=== PATIENT | male | born 1975 | race African-American/Black ===

== ENCOUNTER 2016-11-26 13:40 | Emergency (ER) | payer SELFPAY ==
[2016-11-26 14:04] VITALS: BP 125/84; TEMP 98.4; O2SAT 93
[2016-11-26] MEDS ORDERED: LIDOCAINE VIS-MYLANTA 30 ML UD PO ONE (14:31)
--- NOTE | 2016-11-26 14:34 | ED.PDOC ---
History of Present Illness - General Chief Complaint: Abdominal Pain Stated Complaint: Abdominal discomfort Time Seen by Provider: 11/26/16 14:09 Information Source: patient Exam Limitations: no limitations - History of Present Illness Initial Comments: Patient reports sudden onset of sharp epigastric abdominal pain that began while he was eating a hamburger. Patient reports that the pain was 7 out of 10 in intensity. He states that it lasted approximately 2 minutes before subsiding on its own. Patient denies any pain at the current moment.patient denies any associated symptoms such as nausea or vomiting fevers or chills. Abdominal Pain Onset Location: epigastric Pain Radiation: no radiation Quality: moderate Timing/Duration: resolved prior to arrival Improving Factors: nothing Worsening Factors: eating Associated Symptoms: denies symptoms Review of Systems - Review of Systems Constitutional: Denies: chills, fever Respiratory: Denies: cough, short of breath Cardiology: Denies: chest pain, palpitations Gastrointestinal/Abdominal: States: see HPI, abdominal pain. 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 Family Medical History - Family History Mother Family History: No Known Living Status: Still Living Physical Exam - Physical Exam General Appearance: Alert, Anxious, No apparent distress Eyes, Ears, Nose, Throat Exam: normal ENT inspection Neck: normal inspection Respiratory: normal breath sounds, no respiratory distress Cardiovascular/Chest: regular rate, rhythm, no murmur Gastrointestinal/Abdominal: non tender, soft, no organomegaly Back Exam: normal inspection Extremity: normal range of motion, normal inspection Neurologic: alert, normal mood/affect, oriented x 3 Skin Exam: normal color, warm/dry Departure - Departure Clinical Impression: Indigestion Time of Disposition: 14:36 Disposition: Discharge to Home or Self Care Condition: Good Departure Forms: ED Discharge - Pt. Copy, Patient Portal Self Enrollment Instructions: DI for Abdominal Pain-Adult Diet: resume usual diet Home Medications: Ambulatory Orders NK [NK] 11/26/16 Additional Instructions: Patient was instructed to return if symptoms return and fail to resolve.
== END 2016-11-26 14:44 | disposition home or self-care (01) ==
LOC: ER 13:40
DX: K30 Functional dyspepsia (principal)

== ENCOUNTER 2016-11-29 11:04 | Emergency (ER) | payer SELFPAY ==
[2016-11-29 11:28] VITALS: TEMP 97
[2016-11-29] MEDS ORDERED: LIDOCAINE VIS-MYLANTA 30 ML UD PO ONE (11:59)
--- NOTE | 2016-11-29 12:03 | ED.PDOC ---
History of Present Illness - General Chief Complaint: Upper Extremity Injury Stated Complaint: arm pain,abdominal pain Time Seen by Provider: 11/29/16 11:53 Source: patient Exam Limitations: no limitations - History of Present Illness Initial Comments: Patient presents with a history of intermittent abdominal pain. He said he had it "pretty bad" last night. It is worse just after eating. It has since resolved. He has had multiple previous episodes and was told he may have an "ulcer". He has had no N/V/D/melena. He says that he smokes and drinks alot of sodas. He also said he was doing bicep curls in the gym three days ago and now his biceps are sore. He thinks he may have overdone his workout. No other complaints. Timing/Duration: unsure, changing over time, intermittent Severity: mild Improving Factors: nothing Worsening Factors: eating Associated Symptoms: denies symptoms Allergies/Adverse Reactions: Allergies NO KNOWN ALLERGY Allergy (Verified 11/26/16 13:58) Home Medications: Ambulatory Orders Omeprazole 20 mg PO BID #60 cap 11/29/16 Review of Systems - Review of Systems Constitutional: States: no symptoms reported EENTM: States: no symptoms reported Respiratory: States: no symptoms reported Cardiology: States: no symptoms reported Gastrointestinal/Abdominal: States: see HPI Genitourinary: States: no symptoms reported Musculoskeletal: States: no symptoms reported Skin: States: no symptoms reported Neurological: States: no symptoms reported Endocrine: States: no symptoms reported Hematologic/Lymphatic: States: no symptoms reported Past Medical History (General) - Patient Medical History Hx Stroke: No Hx Congestive Heart Failure: No Hx Hypertension: No Hx Diabetes: No Hx MRSA: No Surgical History: no surgical history - Vaccination History Hx Influenza Vaccination: No Hx Pneumococcal Vaccination: No - Social History Hx Tobacco Use: Yes Hx Alcohol Use: No 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 11/29/16 12:29 Departure - Departure Clinical Impression: Gastritis Disposition: Discharge to Home or Self Care Condition: Good Departure Forms: ED Discharge - Pt. Copy, Patient Portal Self Enrollment Diet: other - Stop drinking sodas. Increase your water intake. Prescriptions: Omeprazole 20 mg PO BID #60 cap Home Medications: Ambulatory Orders Omeprazole 20 mg PO BID #60 cap 11/29/16 Additional Instructions: Take Mylanta as directed on the bottle. Take prescription omeprazole as directed. See a primary care physician next week about possibly looking for an ulcer. Rest your biceps for two weeks.
[2016-11-29 12:45] VITALS: BP 137/84; O2SAT 100
== END 2016-11-29 12:46 | disposition home or self-care (01) ==
LOC: ER 11:04
DX: K29.70 Gastritis, unspecified, without bleeding (principal); F17.200 Nicotine dependence, unspecified, uncomplicated

== ENCOUNTER 2017-01-15 14:37 | Emergency (ER) | payer SELFPAY ==
[2017-01-15 14:48] VITALS: TEMP 98.2
[2017-01-15] MEDS ORDERED: LIDOCAINE VIS-MYLANTA 30 ML UD PO ONE (14:58)
--- NOTE | 2017-01-15 15:23 | RAD ---
EXAM DESCRIPTION: Abdomen Series CLINICAL HISTORY: rigth abdomen and flank pain 1 hour COMPARISON: November 29, 2015 FINDINGS: AP supine and upright views of the abdomen show a nonspecific, nonobstructive bowel gas pattern with no evidence for free intraperitoneal air. No air-filled dilated loops of small bowel are seen. No significant air-fluid levels are identified. No obvious organomegaly is seen. No abnormal calcifications are seen in the expected location of the renal collecting systems. Single view of the chest shows cardiac silhouette and pulmonary vasculature to be within normal limits. Lungs are normally aerated and clear IMPRESSION: Nonspecific abdominal series Electronically signed by: Marko Srinivasan MD 01/15/2017 3:22 PM CDT
--- NOTE | 2017-01-15 15:51 | ED.PDOC ---
History of Present Illness - General Chief Complaint: Abdominal Pain Stated Complaint: epigastric pain Time Seen by Provider: 01/15/17 14:38 Source: patient Exam Limitations: no limitations - History of Present Illness Initial Comments: the patient is a 41-year-old -L[place] male presenting to the emergency room secondary to right-sided epigastric and abdominal pain starting approximately 20 minutes prior to arrival. It is burning in nature. He had a previous episode about a month and a half ago and took omeprazole for a month without any recurrence. He has been out of that medication for 2 weeks. No palpitations. No vomiting. No nausea. No syncope or near syncope. No significant previous medical problems except that he has had substance abuse issues in the past. The patient does not appear to be any distress at this time. He reports that the GI cocktail was given here did help significantly with the pain. No urinary symptoms. No radiation of pain to the groin. No bruising is noted. I do not see any evidence of a hernia. Timing/Duration: 1/2 hour Severity: moderate Improving Factors: nothing Worsening Factors: nothing Associated Symptoms: denies symptoms Allergies/Adverse Reactions: Allergies NO KNOWN ALLERGY Allergy (Verified 11/26/16 13:58) Home Medications: Ambulatory Orders Omeprazole 20 mg PO BID #60 cap 11/29/16 Famotidine 20 mg PO DAILY #100 tab 01/15/17 Review of Systems - Review of Systems Constitutional: States: no symptoms reported EENTM: States: no symptoms reported Respiratory: States: no symptoms reported Cardiology: States: no symptoms reported Gastrointestinal/Abdominal: States: see HPI Genitourinary: States: no symptoms reported Musculoskeletal: States: see HPI Skin: States: no symptoms reported Neurological: States: no symptoms reported Endocrine: States: no symptoms reported All other Systems: No Change from Baseline Past Medical History (General) - Patient Medical History Hx Stroke: No Hx Congestive Heart Failure: No Hx Hypertension: No Hx Diabetes: No Hx MRSA: No Surgical History: no surgical history - Vaccination History Hx Influenza Vaccination: No Hx Pneumococcal Vaccination: No - Social History Hx Tobacco Use: Yes Hx Alcohol Use: No 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 Family Medical History - Family History Mother Family History: No Known Living Status: Still Living Physical Exam - Physical Exam General Appearance: Alert, Comfortable, No apparent distress Eye Exam: bilateral normal Ears, Nose, Throat: normal ENT inspection, normal pharynx Neck: non-tender, full range of motion, supple Respiratory: chest non-tender, lungs clear, normal breath sounds, no respiratory distress, no accessory muscle use Cardiovascular/Chest: normal peripheral pulses, regular rate, rhythm, no edema Peripheral Pulses: radial,right: 2+, radial,left: 2+, dorsalis pedis,right: 2+, dorsalis pedis,left: 2+ Gastrointestinal/Abdominal: soft, other - mild epigastric to right upper quadrant discomfort palpation. No rebound or peritoneal signs. No definite palpable mass. Rectal Exam: deferred Back Exam: normal inspection, no vertebral tenderness, other - questionable very mild right costovertebral angle tenderness Extremity: normal range of motion, non-tender, normal inspection, no pedal edema Neurologic: dragline oiler II-XII nml as tested, alert, normal mood/affect - the patient does have poor eye contact., oriented x 3 Skin Exam: normal color Comments: Vital Signs - 24 hr 01/15/17 14:45 Temperature 98.2 F Pulse Rate [ 94 H Right Brachial] Respiratory 16 Rate Blood Pressure 118/77 [Right Arm] O2 Sat by Pulse 97 Oximetry Progress - Progress Progress: 01/15/17 15:53 the patient is a 41-year-old -Lebanese male presenting to the emergency room secondary to sudden onset of abdominal pain this morning. Looking back over his history he does have a history of significant gastritis and is currently out of any medications for that. I'm going to place the patient on famotidine twice a day for now. He needs to keep well-hydrated. Needs to avoid illicit substance abuse. He needs to avoid large spicy meals. He needs to avoid overheating. He needs to follow-up with his primary care doctor in a few days to make sure that he is doing well. He did have a good response to a GI cocktail here today. Maalox can be used additionally as needed for symptom relief. ER warnings were given for any worsening. - Results/Orders Results/Orders: Laboratory Tests 01/15/17 15:15 Urine Color Yellow Urine Appearance Clear Urine pH 7.5 Ur Specific [place] 1.020 Urine Protein Negative Urine Glucose (UA) Negative Urine Ketones Negative Urine Blood Negative Urine Nitrite Negative Urine Bilirubin Negative Urine Urobilinogen 4.0 H Ur Leukocyte Esterase Negative Urine RBC 0 Urine WBC 0 Ur Epithelial Cells 0 Urine Bacteria 0 acute abdominal series shows no acute pathology. Departure - Departure Clinical Impression: Gastritis Disposition: Discharge to Home or Self Care Condition: Fair Departure Forms: ED Discharge - Pt. Copy, Patient Portal Self Enrollment Instructions: DI for Abdominal Pain-Adult Diet: bland diet Activity: increase activity as tolerated Prescriptions: Famotidine 20 mg PO DAILY #100 tab Home Medications: Ambulatory Orders Omeprazole 20 mg PO BID #60 cap 11/29/16 Famotidine 20 mg PO DAILY #100 tab 01/15/17 Additional Instructions: the patient is a 41-year-old -L[place]anese male presenting to the emergency room secondary to sudden onset of abdominal pain this morning. Looking back over his history he does have a history of significant gastritis and is currently out of any medications for that. I'm going to place the patient on famotidine twice a day for now. He needs to keep well-hydrated. Needs to avoid illicit substance abuse. He needs to avoid large spicy meals. He needs to avoid overheating. He needs to follow-up with his primary care doctor in a few days to make sure that he is doing well. He did have a good response to a GI cocktail here today. Maalox can be used additionally as needed for symptom relief. ER warnings were given for any worsening.
[2017-01-15 16:06] VITALS: BP 138/90; O2SAT 99
== END 2017-01-15 16:05 | disposition home or self-care (01) ==
LOC: ER 14:37
DX: K29.70 Gastritis, unspecified, without bleeding (principal); Z87.898 Personal history of other specified conditions

== ENCOUNTER 2017-01-21 12:52 | Emergency (ER) | payer SELFPAY ==
[2017-01-21] MEDS ORDERED: FAMOTIDINE 20 MG TAB PO ONE (13:43)
[2017-01-21] MEDS ORDERED: SUCRALFATE 1 GM/10 ML 1 GM UD PO ONE (13:43)
--- NOTE | 2017-01-21 13:46 | ED.PDOC ---
History of Present Illness - General Time Seen by Provider: 01/21/17 13:19 Source: patient Exam Limitations: no limitations - History of Present Illness Initial Comments: the patient is a 41-year-old -[place] male presenting to the emergency room secondary to complaints of mild abdominal discomfort. He is having some epigastric discomfort. Intermittent mild nausea. No vomiting. No diarrhea. No melena. No fevers. His appetite has been poor than normal. No chest pain. A syncope or near syncope. The patient was seen approximately one week ago by me with essentially the same symptoms. X-rays and urinalysis were done and were reassuring. The patient has a long-standing history of gastritis and reflux and has been off of his medications. He was written for famotidine last week but did not get them filled. His symptoms have persisted so he returned to the emergency room.no fevers. No new pain. Timing/Duration: 1 week Severity: mild Improving Factors: nothing Worsening Factors: nothing Associated Symptoms: denies symptoms Allergies/Adverse Reactions: Allergies NO KNOWN ALLERGY Allergy (Verified 11/26/16 13:58) Home Medications: Ambulatory Orders Omeprazole 20 mg PO BID #60 cap 11/29/16 Famotidine 20 mg PO DAILY #100 tab 01/15/17 Famotidine 20 mg PO BID #60 tab 01/21/17 Sucralfate Tab [Carafate Tab] 1 gm PO QID #60 tab 01/21/17 Review of Systems - Review of Systems Constitutional: States: no symptoms reported EENTM: States: no symptoms reported Respiratory: States: no symptoms reported Cardiology: States: no symptoms reported Gastrointestinal/Abdominal: States: abdominal pain, nausea - mild Genitourinary: States: no symptoms reported Musculoskeletal: States: no symptoms reported Skin: States: no symptoms reported Neurological: States: no symptoms reported Endocrine: States: no symptoms reported All other Systems: No Change from Baseline Past Medical History (General) - Patient Medical History Hx Stroke: No Hx Congestive Heart Failure: No Hx Hypertension: No Hx Diabetes: No Hx MRSA: No - Vaccination History Hx Influenza Vaccination: No Hx Pneumococcal Vaccination: No - Social History Hx Tobacco Use: Yes Hx Alcohol Use: No 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 Family Medical History - Family History Mother Family History: No Known Living Status: Still Living Physical Exam - Physical Exam General Appearance: Alert, Comfortable, No apparent distress Eye Exam: bilateral normal Ears, Nose, Throat: hearing grossly normal, normal ENT inspection, normal pharynx Neck: non-tender, full range of motion, supple, normal inspection Respiratory: chest non-tender, lungs clear, normal breath sounds, no respiratory distress, no accessory muscle use Cardiovascular/Chest: normal peripheral pulses, regular rate, rhythm, no edema Peripheral Pulses: radial,right: 2+, radial,left: 2+, dorsalis pedis,right: 2+, dorsalis pedis,left: 2+ Gastrointestinal/Abdominal: soft, other - mild epigastric discomfort palpation. No rebound or peritoneal signs. No definite palpable mass. Rectal Exam: deferred Back Exam: normal inspection, no CVA tenderness, no vertebral tenderness Extremity: normal range of motion, non-tender, normal inspection, no pedal edema , normal capillary refill Neurologic: finisher machine II-XII nml as tested, alert, normal mood/affect, oriented x 3 Skin Exam: normal color Progress - Progress Progress: 01/21/17 13:47 the patient is a 41-year-old male presenting to the emergency room secondary to persistent epigastric discomfort. The patient has a history of gastritis and reflux and has been off his medications for some time. The patient will be rewritten for his famotidine. We will also add Carafate for 2 weeks. He needs to grape picker some Maalox or Mylanta to use as needed to control symptoms. He needs to avoid hot or spicy foods. No smoking. He needs to keep well- hydrated. If the above measures are failing to control his symptoms then he is to return for additional workup. He needs to follow up with his primary care doctor towards the end of this week. Departure - Departure Clinical Impression: Gastritis Disposition: Discharge to Home or Self Care Condition: Fair Instructions: DI for Gastritis Diet: bland diet Activity: increase activity as tolerated Prescriptions: Famotidine 20 mg PO BID #60 tab Sucralfate Tab [Carafate Tab] 1 gm PO QID #60 tab Home Medications: Ambulatory Orders Omeprazole 20 mg PO BID #60 cap 11/29/16 Famotidine 20 mg PO DAILY #100 tab 01/15/17 Famotidine 20 mg PO BID #60 tab 01/21/17 Sucralfate Tab [Carafate Tab] 1 gm PO QID #60 tab 01/21/17 Additional Instructions: the patient is a 41-year-old male presenting to the emergency room secondary to persistent epigastric discomfort. The patient has a history of gastritis and reflux and has been off his medications for some time. The patient will be rewritten for his famotidine. We will also add Carafate for 2 weeks. He needs to grape picker some Maalox or Mylanta to use as needed to control symptoms. He needs to avoid hot or spicy foods. No smoking. He needs to keep well- hydrated. If the above measures are failing to control his symptoms then he is to return for additional workup. He needs to follow up with his primary care doctor towards the end of this week.
[2017-01-21 16:54] VITALS: BP 148/79; TEMP 98.4; O2SAT 98
== END 2017-01-21 14:15 | disposition home or self-care (01) ==
LOC: ER 12:52
DX: K29.70 Gastritis, unspecified, without bleeding (principal); Z87.891 Personal history of nicotine dependence

== ENCOUNTER 2017-02-11 14:42 | Emergency (ER) | payer SELFPAY ==
[2017-02-11 14:59] VITALS: BP 129/87; TEMP 98.4; O2SAT 95
--- NOTE | 2017-02-11 15:31 | ED.PDOC ---
History of Present Illness - General Chief Complaint: Abdominal Pain Stated Complaint: abdominal pain Time Seen by Provider: 02/11/17 15:29 Information Source: patient Exam Limitations: no limitations - History of Present Illness Initial Comments: Rakesh Lemon 42 y/o male stated he had onset of cramping epigastric pain 2 hours ago not related to any food intake.Had normal bm yesterday,no nausea /vomiting.Denies chronic medical problem. Abdominal Pain Onset Location: epigastric Pain Radiation: epigastric Quality: cramping Timing/Duration: 1-3 hours Improving Factors: nothing, eating Associated Symptoms: denies symptoms Review of Systems - Review of Systems Constitutional: States: no symptoms reported EENTM: States: no symptoms reported Respiratory: States: no symptoms reported Cardiology: States: no symptoms reported Gastrointestinal/Abdominal: States: see HPI Genitourinary: States: no symptoms reported Musculoskeletal: States: no symptoms reported Past Medical History (General) - Patient Medical History Hx Stroke: No Hx Congestive Heart Failure: No Hx Hypertension: No Hx Diabetes: No Hx MRSA: No Surgical History: no surgical history - Vaccination History Hx Influenza Vaccination: No Hx Pneumococcal Vaccination: No - Social History Hx Tobacco Use: Yes Cigarettes Packs Per Day: 1 Hx Alcohol Use: Yes - 02-10-17 Hx Substance Use: Yes - last used meth 1 day ago Hx Substance Use Treatment: No - Activities of Daily Living Hospice Agency (if applicable):: None - Female History Patient is a Female of Child Bearing Age (10 -59 yrs old): No Patient : No Family Medical History - Family History Mother Family History: No Known Living Status: Still Living Physical Exam - Physical Exam General Appearance: Alert, Comfortable, No apparent distress Eyes, Ears, Nose, Throat Exam: PERRL/EOMI, normal ENT inspection, TMs normal Neck: non-tender, full range of motion, supple Respiratory: chest non-tender, lungs clear, normal breath sounds Cardiovascular/Chest: normal peripheral pulses, regular rate, rhythm, no edema, no murmur Peripheral Pulses: No deficit Gastrointestinal/Abdominal: normal bowel sounds, soft, tenderness - epigastrium no peritoneal signs Back Exam: normal inspection, no CVA tenderness Extremity: normal range of motion, non-tender Neurologic: no motor/sensory deficits, alert, oriented x 3 Skin Exam: normal color, warm/dry Lymphatic: no adenopathy Progress - Progress Progress: 02/11/17 17:46 Vital Signs - 8 hr 02/11/17 14:47 Temperature 98.4 F Pulse Rate [ 97 H pulse ox] Respiratory 16 Rate Blood Pressure 129/87 [Left Arm] O2 Sat by Pulse 95 Oximetry Laboratory Tests 02/11/17 02/11/17 15:48 15:48 WBC 6.7 RBC 5.33 Hgb 15.2 Hct 45.6 MCV 85.6 MCH 28.5 MCHC 33.3 RDW 13.7 Plt Count 283 MPV 7.4 Absolute Neuts (auto) 3.80 Absolute Lymphs (auto) 2.20 Absolute Monos (auto) 0.50 Absolute Eos (auto) 0.10 Absolute Basos (auto) 0.00 Neutrophils % 57.5 Lymphocytes % 32.8 Monocytes % 7.3 Eosinophils % 1.8 Basophils % 0.6 Sodium 141 Potassium 4.3 Chloride 105 Carbon Dioxide 29 Anion Gap 11.3 L BUN 16 Creatinine 1.27 BUN/Creatinine Ratio 12.6 Random Glucose 95 Serum Osmolality 282.3 Calcium 9.5 Total Bilirubin 1.2 H AST 20 ALT 16 Alkaline Phosphatase 48 Serum Total Protein 7.0 Albumin 4.4 Globulin 2.6 Albumin/Globulin Ratio 1.7 Lipase 35 Departure - Departure Clinical Impression: Abdominal pain Qualifiers: Abdominal location: epigastric Qualified Code(s): R10.13 - Epigastric pain Time of Disposition: 18:44 Disposition: Discharge to Home or Self Care Condition: Good Departure Forms: ED Discharge - Pt. Copy, Patient Portal Self Enrollment Instructions: DI for Abdominal Pain-Adult Diet: low fat, low cholesterol, other - Avoid greasy spicy foods Prescriptions: Hyoscyamine Sulfate [Levsin] 0.125 mg PO TID PRN #20 tab PRN Reason: Abdominal Cramping Ranitidine HCl [Ranitidine Maximum Streng] 150 mg PO BID #60 tab Sucralfate Tab [Carafate Tab] 1 gm PO QID #60 tab Home Medications: Ambulatory Orders Omeprazole 20 mg PO BID #60 cap 11/29/16 Famotidine 20 mg PO DAILY #100 tab 01/15/17 Famotidine 20 mg PO BID #60 tab 01/21/17 Sucralfate Tab [Carafate Tab] 1 gm PO QID #60 tab 01/21/17 Hyoscyamine Sulfate [Levsin] 0.125 mg PO TID PRN #20 tab 02/11/17 Ranitidine HCl [Ranitidine Maximum Streng] 150 mg PO BID #60 tab 02/11/17 Sucralfate Tab [Carafate Tab] 1 gm PO QID #60 tab 02/11/17 Additional Instructions: Follow up with your primary md 02/13/2017 call for appointment;Return to emergency room as needed
[2017-02-11] MEDS ORDERED: LIDOCAINE VIS-MYLANTA 30 ML UD PO ONE (15:39)
[2017-02-11] MEDS ORDERED: PANTOPRAZOLE SODIUM IV 40 MG VIAL IV ONE (15:39)
[2017-02-11] MEDS ORDERED: SUCRALFATE 1 GM/10 ML 1 GM UD PO ONE (15:39)
== END 2017-02-11 18:51 | disposition home or self-care (01) ==
LOC: ER 14:42
DX: R10.13 Epigastric pain (principal); F17.210 Nicotine dependence, cigarettes, uncomplicated

== ENCOUNTER 2017-02-17 11:27 | Emergency (ER) | payer SELFPAY ==
[2017-02-17 11:49] VITALS: TEMP 98.5
--- NOTE | 2017-02-17 11:52 | ED.PDOC ---
History of Present Illness - General Chief Complaint: Abdominal Pain Stated Complaint: epigastric pain Time Seen by Provider: 02/17/17 11:51 Information Source: patient Exam Limitations: no limitations - History of Present Illness Initial Comments: Rakesh Lemon 42 y/o male with multiple visit for abdominal pain- epigastic in the past and last one was 2 days ago lab test not showing abnormalitie except for positive methamphetamines on UDS admit using meth occassionally. Prescribed medications h2 blockers and carafate but not picking prescriptions. Abdominal Pain Onset Location: epigastric Pain Radiation: no radiation Quality: cramping Timing/Duration: intermittent Improving Factors: nothing Worsening Factors: nothing Associated Symptoms: denies symptoms Review of Systems - Review of Systems Constitutional: States: no symptoms reported EENTM: States: no symptoms reported Respiratory: States: no symptoms reported Cardiology: States: no symptoms reported Gastrointestinal/Abdominal: States: see HPI Genitourinary: States: no symptoms reported Musculoskeletal: States: no symptoms reported Skin: States: no symptoms reported Neurological: States: no symptoms reported Endocrine: States: no symptoms reported Past Medical History (General) - Patient Medical History Hx Stroke: No Hx Congestive Heart Failure: No Hx Hypertension: No Hx Diabetes: No Hx MRSA: No Surgical History: no surgical history - Vaccination History Hx Influenza Vaccination: No Hx Pneumococcal Vaccination: No - Social History Hx Tobacco Use: Yes Hx Alcohol Use: Yes - 02-10-17 Hx Substance Use: Yes - last used meth 1 day ago Hx Substance Use Treatment: No - Female History Patient : No Family Medical History - Family History Mother Family History: No Known Living Status: Still Living Physical Exam - Physical Exam General Appearance: Alert, Comfortable, No apparent distress Eyes, Ears, Nose, Throat Exam: PERRL/EOMI, normal ENT inspection, TMs normal, pharynx normal Neck: non-tender, full range of motion, supple Respiratory: chest non-tender, lungs clear, normal breath sounds Cardiovascular/Chest: normal peripheral pulses, regular rate, rhythm, no murmur Peripheral Pulses: No deficit Gastrointestinal/Abdominal: normal bowel sounds, non tender, soft Back Exam: normal inspection, no CVA tenderness, no vertebral tenderness Extremity: normal range of motion, non-tender, normal inspection Neurologic: alert, normal mood/affect, oriented x 3 Skin Exam: normal color, warm/dry Lymphatic: no adenopathy Progress - EKG/XRAY/CT EKG: Sinus, no ST T wave changes Comments: heart rate-63 XRAY: abdomen - no acute abnormalities Departure - Departure Clinical Impression: Methamphetamine dependence Abdominal pain Qualifiers: Abdominal location: epigastric Qualified Code(s): R10.13 - Epigastric pain Gastritis Qualifiers: Gastritis type: unspecified gastritis Chronicity: chronic Gastritis bleeding: without bleeding Qualified Code(s): K29.50 - Unspecified chronic gastritis without bleeding Time of Disposition: 12:43 Disposition: Discharge to Home or Self Care Condition: Fair Instructions: [place] Diet, Gastritis, Gastritis (Alternative Therapy), DI for Gastritis Diet: low fat, low cholesterol, other - avoid greasy spicy foods Prescriptions: Hyoscyamine Sulfate [Levsin] 0.125 mg PO TID #20 tab Ranitidine HCl 150 mg PO ACHS #60 tab Sucralfate Tab [Carafate Tab] 1 gm PO QID #60 tab Home Medications: Ambulatory Orders Omeprazole 20 mg PO BID #60 cap 11/29/16 Famotidine 20 mg PO DAILY #100 tab 01/15/17 Famotidine 20 mg PO BID #60 tab 01/21/17 Sucralfate Tab [Carafate Tab] 1 gm PO QID #60 tab 01/21/17 Hyoscyamine Sulfate [Levsin] 0.125 mg PO TID PRN #20 tab 02/11/17 Ranitidine HCl [Ranitidine Maximum Streng] 150 mg PO BID #60 tab 02/11/17 Sucralfate Tab [Carafate Tab] 1 gm PO QID #60 tab 02/11/17 Hyoscyamine Sulfate [Levsin] 0.125 mg PO TID #20 tab 02/17/17 Ranitidine HCl 150 mg PO ACHS #60 tab 02/17/17 Sucralfate Tab [Carafate Tab] 1 gm PO QID #60 tab 02/17/17 Additional Instructions: Need to sign up with primary MD to Follow up and possible referral to GI specialist
[2017-02-17] MEDS: SUCRALFATE 1 GM/10 ML 1 GM UD PO ONE (11:57)
[2017-02-17] MEDS: LIDOCAINE VIS-MYLANTA 30 ML UD PO ONE (11:57)
--- NOTE | 2017-02-17 12:21 | RAD ---
3 view abdomen. Indication: pain Comparison: January 15, 2017. Impression: Heart size normal. Lungs clear. No free air. Bowel gas pattern nonspecific. No abnormal calcifications. No acute osseous abnormality. Electronically signed by: Nicko Weir MD 02/17/2017 12:20 PM CDT
[2017-02-17 12:37] VITALS: BP 105/71; O2SAT 98
== END 2017-02-17 13:18 | disposition home or self-care (01) ==
LOC: ER 11:27
DX: K29.50 Unspecified chronic gastritis without bleeding (principal); F15.20 Other stimulant dependence, uncomplicated; Z87.891 Personal history of nicotine dependence

== ENCOUNTER 2017-03-19 12:22 | Emergency (ER) | payer SELFPAY ==
[2017-03-19 12:44] VITALS: TEMP 98.8
[2017-03-19] MEDS ORDERED: LIDOCAINE VIS-MYLANTA 30 ML UD PO ONE (13:20)
--- NOTE | 2017-03-19 13:28 | ED.PDOC ---
History of Present Illness - General Chief Complaint: GI Problem Stated Complaint: nausea Time Seen by Provider: 03/19/17 13:17 Source: patient Exam Limitations: no limitations - History of Present Illness Initial Comments: the patient is a 42-year-old -[place] male presenting to emergency room secondary to recurrence of epigastric pain. He has been seen on multiple occasions for this and has had multiple workups for this. He does seem to respond to treatments for gastritis and he has apparently been started on amoxicillin by a new primary care doctor for what is possibly H. pylori. He has been on amoxicillin a week. Started having some upper intestinal upset again. He is only taking the amoxicillin and Tylenol No. 3. He is not taking any of the Carafate or ranitidine written for himhere less than a month ago. He does have a significant history of noncompliance as well as a history of methamphetamine abuse. No vomiting. No blood in the stools. No syncope. No near syncope. Discomfort is in the epigastric area only. Timing/Duration: 24 hours Severity: moderate Improving Factors: nothing Worsening Factors: nothing Associated Symptoms: loss of appetite, malaise Allergies/Adverse Reactions: Allergies NO KNOWN ALLERGY Allergy (Verified 03/19/17 12:44) Home Medications: Ambulatory Orders Omeprazole 20 mg PO BID #60 cap 11/29/16 Famotidine 20 mg PO DAILY #100 tab 01/15/17 Famotidine 20 mg PO BID #60 tab 01/21/17 Sucralfate Tab [Carafate Tab] 1 gm PO QID #60 tab 01/21/17 Hyoscyamine Sulfate [Levsin] 0.125 mg PO TID PRN #20 tab 02/11/17 Ranitidine HCl [Ranitidine Maximum Streng] 150 mg PO BID #60 tab 02/11/17 Sucralfate Tab [Carafate Tab] 1 gm PO QID #60 tab 02/11/17 Hyoscyamine Sulfate [Levsin] 0.125 mg PO TID #20 tab 02/17/17 Ranitidine HCl 150 mg PO ACHS #60 tab 02/17/17 Sucralfate Tab [Carafate Tab] 1 gm PO QID #60 tab 02/17/17 Famotidine 20 mg PO BID #60 tab 03/19/17 Famotidine 20 mg PO BID #60 tab 03/19/17 Sucralfate Tab [Carafate Tab] 1 gm PO QID #120 tab 03/19/17 Sucralfate Tab [Carafate Tab] 1 gm PO QID #120 tab 03/19/17 Review of Systems - Review of Systems Constitutional: States: malaise EENTM: States: no symptoms reported Respiratory: States: no symptoms reported Cardiology: States: no symptoms reported Gastrointestinal/Abdominal: States: see HPI Genitourinary: States: no symptoms reported Musculoskeletal: States: no symptoms reported Skin: States: no symptoms reported Neurological: States: no symptoms reported Endocrine: States: no symptoms reported Hematologic/Lymphatic: States: no symptoms reported All other Systems: No Change from Baseline Past Medical History (General) - Patient Medical History Hx Stroke: No Hx Congestive Heart Failure: No Hx Hypertension: No Hx Diabetes: No Hx MRSA: No Surgical History: no surgical history - Vaccination History Hx Influenza Vaccination: No Hx Pneumococcal Vaccination: No - Social History Hx Tobacco Use: Yes Hx Alcohol Use: Yes Hx Substance Use: Yes - last used meth 1 month ago Hx Substance Use Treatment: No - Activities of Daily Living Hospice Agency (if applicable):: None - Female History Patient : No Family Medical History - Family History Mother Family History: No Known Living Status: Still Living Physical Exam - Physical Exam General Appearance: Alert, Comfortable, No apparent distress Eye Exam: bilateral normal Ears, Nose, Throat: hearing grossly normal, normal ENT inspection, normal pharynx Neck: full range of motion, supple Respiratory: chest non-tender, lungs clear, normal breath sounds, no respiratory distress, no accessory muscle use Cardiovascular/Chest: normal peripheral pulses, regular rate, rhythm, no edema Peripheral Pulses: radial,right: 2+, radial,left: 2+, dorsalis pedis,right: 2+, dorsalis pedis,left: 2+ Gastrointestinal/Abdominal: soft, other - mild epigastric discomfort to palpation but no rebound or peritoneal signs and no palpable masses. Rectal Exam: deferred Back Exam: normal inspection, no CVA tenderness Extremity: normal range of motion, non-tender, normal inspection, normal capillary refill Neurologic: no motor/sensory deficits, alert, normal mood/affect, oriented x 3 Skin Exam: normal color Comments: Vital Signs - 24 hr 03/19/17 12:35 Temperature 98.8 F Pulse Rate [ 66 pulse ox] Respiratory 16 Rate Blood Pressure 136/88 [Right Arm] O2 Sat by Pulse 97 Oximetry Progress - Progress Progress: 03/19/17 13:28 the patient is a 42-year-old -[place] male presenting with recurrence of his epigastric pain that is consistent with gastritis. He is currently not taking any of his acid reducing medications. He will be rewritten for famotidine and Carafate. He needs to complete his course of amoxicillin. He needs to follow up with his primary care doctor next week. ER warnings were given. Additionally he can use Maalox as needed to help reduce symptoms. Departure - Departure Clinical Impression: Gastritis Qualifiers: Gastritis type: unspecified gastritis Chronicity: chronic Gastritis bleeding: without bleeding Qualified Code(s): K29.50 - Unspecified chronic gastritis without bleeding Disposition: Discharge to Home or Self Care Condition: Fair Departure Forms: ED Discharge - Pt. Copy, Patient Portal Self Enrollment Instructions: DI for Gastritis Diet: bland diet Activity: increase activity as tolerated Prescriptions: Famotidine 20 mg PO BID #60 tab Famotidine 20 mg PO BID #60 tab Sucralfate Tab [Carafate Tab] 1 gm PO QID #120 tab Sucralfate Tab [Carafate Tab] 1 gm PO QID #120 tab Home Medications: Ambulatory Orders Omeprazole 20 mg PO BID #60 cap 11/29/16 Famotidine 20 mg PO DAILY #100 tab 01/15/17 Famotidine 20 mg PO BID #60 tab 01/21/17 Sucralfate Tab [Carafate Tab] 1 gm PO QID #60 tab 01/21/17 Hyoscyamine Sulfate [Levsin] 0.125 mg PO TID PRN #20 tab 02/11/17 Ranitidine HCl [Ranitidine Maximum Streng] 150 mg PO BID #60 tab 02/11/17 Sucralfate Tab [Carafate Tab] 1 gm PO QID #60 tab 02/11/17 Hyoscyamine Sulfate [Levsin] 0.125 mg PO TID #20 tab 02/17/17 Ranitidine HCl 150 mg PO ACHS #60 tab 02/17/17 Sucralfate Tab [Carafate Tab] 1 gm PO QID #60 tab 02/17/17 Famotidine 20 mg PO BID #60 tab 03/19/17 Famotidine 20 mg PO BID #60 tab 03/19/17 Sucralfate Tab [Carafate Tab] 1 gm PO QID #120 tab 03/19/17 Sucralfate Tab [Carafate Tab] 1 gm PO QID #120 tab 03/19/17 Additional Instructions: the patient is a 42-year-old -[place] male presenting with recurrence of his epigastric pain that is consistent with gastritis. He is currently not taking any of his acid reducing medications. He will be rewritten for famotidine and Carafate. He needs to complete his course of amoxicillin. He needs to follow up with his primary care doctor next week. ER warnings were given. Additionally he can use Maalox as needed to help reduce symptoms.
[2017-03-19 14:00] VITALS: BP 123/81; O2SAT 99
== END 2017-03-19 13:55 | disposition home or self-care (01) ==
LOC: ER 12:22
DX: K29.50 Unspecified chronic gastritis without bleeding (principal); Z79.899 Other long term (current) drug therapy; Z87.891 Personal history of nicotine dependence

== ENCOUNTER 2017-03-24 10:02 | Emergency (ER) | payer SELFPAY ==
[2017-03-24 10:23] VITALS: BP 124/87; O2SAT 98
[2017-03-24] MEDS ORDERED: LIDOCAINE VIS-MYLANTA 30 ML UD PO ONE (10:23)
--- NOTE | 2017-03-24 11:06 | ED.PDOC ---
History of Present Illness - General Chief Complaint: Abdominal Pain Stated Complaint: abdominal pain, out of meds Time Seen by Provider: 03/24/17 10:21 Source: patient Exam Limitations: no limitations Additional Information: PT C/O ABDOMINAL PAIN. WAS SEEN 02/11/17 WITH LAB. CURRENTLY NOT TAKING ANY MEDS. - History of Present Illness Timing/Duration: other - THIS AM Severity: mild Improving Factors: nothing Worsening Factors: nothing, other - DENIES NSAID USE Associated Symptoms: denies symptoms Allergies/Adverse Reactions: Allergies NO KNOWN ALLERGY Allergy (Verified 03/19/17 12:44) Home Medications: Ambulatory Orders Omeprazole 20 mg PO BID #60 cap 11/29/16 Famotidine 20 mg PO DAILY #100 tab 01/15/17 Famotidine 20 mg PO BID #60 tab 01/21/17 Sucralfate Tab [Carafate Tab] 1 gm PO QID #60 tab 01/21/17 Hyoscyamine Sulfate [Levsin] 0.125 mg PO TID PRN #20 tab 02/11/17 Ranitidine HCl [Ranitidine Maximum Streng] 150 mg PO BID #60 tab 02/11/17 Sucralfate Tab [Carafate Tab] 1 gm PO QID #60 tab 02/11/17 Hyoscyamine Sulfate [Levsin] 0.125 mg PO TID #20 tab 02/17/17 Ranitidine HCl 150 mg PO ACHS #60 tab 02/17/17 Sucralfate Tab [Carafate Tab] 1 gm PO QID #60 tab 02/17/17 Famotidine 20 mg PO BID #60 tab 03/19/17 Famotidine 20 mg PO BID #60 tab 03/19/17 Sucralfate Tab [Carafate Tab] 1 gm PO QID #120 tab 03/19/17 Sucralfate Tab [Carafate Tab] 1 gm PO QID #120 tab 03/19/17 Esomeprazole Magnesium [Nexium] 40 mg PO DAILY #15 cap 03/24/17 Review of Systems - Review of Systems Constitutional: Denies: chills, fever EENTM: States: no symptoms reported Respiratory: States: no symptoms reported Cardiology: States: no symptoms reported Gastrointestinal/Abdominal: States: abdominal pain, other - EPIGASTRIC, "UNEASINESS". Denies: constipation, diarrhea, nausea, vomiting Genitourinary: States: see HPI. Denies: dysuria, hematuria Musculoskeletal: States: no symptoms reported Skin: States: no symptoms reported Neurological: States: no symptoms reported Endocrine: States: no symptoms reported Hematologic/Lymphatic: States: no symptoms reported Past Medical History (General) - Patient Medical History Hx Seizures: No Hx Stroke: No Hx Dementia: No Hx Asthma: No Hx of COPD: No Hx Cardiac Disorders: No Hx Congestive Heart Failure: No Hx Pacemaker: No Hx Hypertension: No Hx Thyroid Disease: No Hx Diabetes: No Hx Gastroesophageal Reflux: Yes Hx Renal Disease: No Hx Cancer: No Hx of HIV: No Hx Hepatitis C: No Hx MRSA: No Surgical History: no surgical history - Vaccination History Hx Tetanus, Diphtheria Vaccination: Yes Hx Influenza Vaccination: Yes Hx Pneumococcal Vaccination: Yes Immunizations Up to Date: Yes - Social History Hx Tobacco Use: Yes Hx Chewing Tobacco Use: No Hx Alcohol Use: Yes Hx Substance Use: Yes Hx Substance Use Treatment: No Hx Depression: No Feels Threatened In Home Enviroment: No Feels Threatened In a Relationship: No Hx Physical Abuse: No Hx Emotional Abuse: No Hx Suspected Abuse: No - Female History Patient is a Female of Child Bearing Age (10 -59 yrs old): No Patient : No Family Medical History - Family History Mother Family History: No Known Living Status: Still Living Hx Family Asthma: No Hx Family Congestive Heart Failure: No Physical Exam - Physical Exam General Appearance: Alert, Comfortable, No apparent distress Eye Exam: bilateral normal Ears, Nose, Throat: hearing grossly normal, normal ENT inspection Neck: non-tender, full range of motion, supple Respiratory: lungs clear, normal breath sounds Cardiovascular/Chest: regular rate, rhythm, no murmur Gastrointestinal/Abdominal: soft, no organomegaly, other - HYPERACTIVE BS, MILD EPIGASTRIC TTP, NO RUQ TTP Rectal Exam: deferred Back Exam: normal inspection Extremity: normal range of motion, normal inspection Neurologic: alert, normal mood/affect Skin Exam: normal color, warm/dry Lymphatic: no adenopathy Progress - Progress Progress: 03/24/17 11:09 SX'S RESOLVED AFTER SLIDER. REVIEWED OLD RECORDS, LAB FROM 02/11 NL. UDS POS FOR METH Departure - Departure Clinical Impression: Gastritis Qualifiers: Gastritis type: unspecified gastritis Chronicity: acute Gastritis bleeding: without bleeding Qualified Code(s): K29.00 - Acute gastritis without bleeding Time of Disposition: 11:10 Disposition: Discharge to Home or Self Care Condition: Excellent Departure Forms: ED Discharge - Pt. Copy, Patient Portal Self Enrollment Instructions: DI for Abdominal Pain-Adult, Gastritis Prescriptions: Esomeprazole Magnesium [Nexium] 40 mg PO DAILY #15 cap Home Medications: Ambulatory Orders Omeprazole 20 mg PO BID #60 cap 11/29/16 Famotidine 20 mg PO DAILY #100 tab 01/15/17 Famotidine 20 mg PO BID #60 tab 01/21/17 Sucralfate Tab [Carafate Tab] 1 gm PO QID #60 tab 01/21/17 Hyoscyamine Sulfate [Levsin] 0.125 mg PO TID PRN #20 tab 02/11/17 Ranitidine HCl [Ranitidine Maximum Streng] 150 mg PO BID #60 tab 02/11/17 Sucralfate Tab [Carafate Tab] 1 gm PO QID #60 tab 02/11/17 Hyoscyamine Sulfate [Levsin] 0.125 mg PO TID #20 tab 02/17/17 Ranitidine HCl 150 mg PO ACHS #60 tab 02/17/17 Sucralfate Tab [Carafate Tab] 1 gm PO QID #60 tab 02/17/17 Famotidine 20 mg PO BID #60 tab 03/19/17 Famotidine 20 mg PO BID #60 tab 03/19/17 Sucralfate Tab [Carafate Tab] 1 gm PO QID #120 tab 03/19/17 Sucralfate Tab [Carafate Tab] 1 gm PO QID #120 tab 03/19/17 Esomeprazole Magnesium [Nexium] 40 mg PO DAILY #15 cap 03/24/17
[2017-03-24 11:23] VITALS: TEMP 97
== END 2017-03-24 11:22 | disposition home or self-care (01) ==
LOC: ER 10:02
DX: K29.00 Acute gastritis without bleeding (principal); K21.9 Gastro-esophageal reflux disease without esophagitis; Z87.891 Personal history of nicotine dependence; Z79.899 Other long term (current) drug therapy

== ENCOUNTER 2017-03-24 15:51 | Emergency (ER) | payer SELFPAY ==
[2017-03-24 16:01] VITALS: TEMP 98.5
[2017-03-24] MEDS ORDERED: ONDANSETRON INJ 4 MG/2 ML VIAL IV ONE (16:16)
--- NOTE | 2017-03-24 16:30 | RAD ---
EXAM DESCRIPTION: Chest,1 View CLINICAL HISTORY: 42 years Male, CP COMPARISON: November 29, 2015 TECHNIQUE: AP portable chest. FINDINGS: Fair expansion of the lungs is evident without consolidation, layering effusion, or large mass. Heart size and vascularity appear normal for AP technique and degree of inspiration. No gross bony, hilar, or mediastinal abnormalities are noted. IMPRESSION: Normal chest, one view Electronically signed by: Immanuel Mina MD 03/24/2017 4:28 PM CDT
--- NOTE | 2017-03-24 16:33 | ED.PDOC ---
History of Present Illness - General Chief Complaint: GI Problem Stated Complaint: GI UPSET Time Seen by Provider: 03/24/17 16:15 Source: patient Exam Limitations: no limitations Additional Information: PT WAS SEEN EARLIER FOR SAME. GI SLIDER GAVE PT RELIEF. HAS BEEN SEEN HERE FOR SIMILAR C/O'S IN PAST. CAME BACK STATES HIS PAIN HAS RETURNED. - History of Present Illness Timing/Duration: 1 hour Severity: mild Improving Factors: nothing Associated Symptoms: other - EPIGASTRIC PAIN WITHOUT RADIATION, NO N/V. HX METHAMPHETAMINE USE. IS UNCLEAR TO LAST USE, "NOT MUCH" SINCE LAST VISIT. Allergies/Adverse Reactions: Allergies NO KNOWN ALLERGY Allergy (Verified 03/24/17 15:57) Home Medications: Ambulatory Orders Omeprazole 20 mg PO BID #60 cap 11/29/16 Famotidine 20 mg PO DAILY #100 tab 01/15/17 Famotidine 20 mg PO BID #60 tab 01/21/17 Sucralfate Tab [Carafate Tab] 1 gm PO QID #60 tab 01/21/17 Hyoscyamine Sulfate [Levsin] 0.125 mg PO TID PRN #20 tab 02/11/17 Ranitidine HCl [Ranitidine Maximum Streng] 150 mg PO BID #60 tab 02/11/17 Sucralfate Tab [Carafate Tab] 1 gm PO QID #60 tab 02/11/17 Hyoscyamine Sulfate [Levsin] 0.125 mg PO TID #20 tab 02/17/17 Ranitidine HCl 150 mg PO ACHS #60 tab 02/17/17 Sucralfate Tab [Carafate Tab] 1 gm PO QID #60 tab 02/17/17 Famotidine 20 mg PO BID #60 tab 03/19/17 Famotidine 20 mg PO BID #60 tab 03/19/17 Sucralfate Tab [Carafate Tab] 1 gm PO QID #120 tab 03/19/17 Sucralfate Tab [Carafate Tab] 1 gm PO QID #120 tab 03/19/17 Esomeprazole Magnesium [Nexium] 40 mg PO DAILY #15 cap 03/24/17 Review of Systems - Review of Systems Constitutional: States: no symptoms reported EENTM: States: no symptoms reported Respiratory: States: short of breath. Denies: cough, stridor, wheezing Cardiology: States: chest pain. Denies: palpitations, syncope Gastrointestinal/Abdominal: States: abdominal pain, other - BURNING SENSATION. Denies: constipation, diarrhea, nausea, vomiting Genitourinary: States: no symptoms reported Musculoskeletal: States: no symptoms reported Skin: States: no symptoms reported Neurological: States: no symptoms reported Endocrine: States: no symptoms reported, see HPI Hematologic/Lymphatic: States: no symptoms reported Past Medical History (General) - Patient Medical History Hx Seizures: No Hx Stroke: No Hx Dementia: No Hx Asthma: No Hx of COPD: No Hx Cardiac Disorders: No Hx Congestive Heart Failure: No Hx Pacemaker: No Hx Hypertension: No Hx Thyroid Disease: No Hx Diabetes: No Hx Gastroesophageal Reflux: Yes Hx Renal Disease: No Hx Cancer: No Hx of HIV: No Hx Hepatitis C: No Hx MRSA: No Surgical History: no surgical history - Vaccination History Hx Tetanus, Diphtheria Vaccination: Yes Hx Influenza Vaccination: No Hx Pneumococcal Vaccination: No Immunizations Up to Date: No - Social History Hx Tobacco Use: Yes Hx Chewing Tobacco Use: No Hx Alcohol Use: Yes Hx Substance Use: Yes - METHAMPHETAMINE Hx Substance Use Treatment: No Hx Depression: No Feels Threatened In Home Enviroment: No Feels Threatened In a Relationship: No Hx Physical Abuse: No Hx Emotional Abuse: No Hx Suspected Abuse: No - Female History Patient : No Family Medical History - Family History Mother Family History: No Known Living Status: Still Living Hx Family Asthma: No Hx Family Congestive Heart Failure: No Physical Exam - Physical Exam General Appearance: Alert, Comfortable, No apparent distress Eye Exam: bilateral normal Ears, Nose, Throat: hearing grossly normal, normal ENT inspection Neck: non-tender, full range of motion, supple Respiratory: lungs clear, normal breath sounds, no respiratory distress Cardiovascular/Chest: regular rate, rhythm, no edema Gastrointestinal/Abdominal: normal bowel sounds, non tender, soft, no organomegaly Back Exam: normal inspection, no CVA tenderness Extremity: normal range of motion Neurologic: alert, oriented x 3 Skin Exam: normal color Lymphatic: no adenopathy Comments: IN LIGHT OF RETURN VISIT AND HX METH USE WILL DO CARDIAC W/U THIS VISIT Progress - EKG/XRAY/CT EKG: Sinus - 74, NL AXIS, NL INTERVALS, , nonspecific ST T wave Chg, Changed from - EKG EARLIER TODAY. IMPROVEMENT OF T WAVE CHANGES. XRAY: chest - ANDRAE Departure - Departure Clinical Impression: Gastritis Qualifiers: Gastritis type: unspecified gastritis Chronicity: acute Gastritis bleeding: without bleeding Qualified Code(s): K29.00 - Acute gastritis without bleeding Time of Disposition: 17:24 Disposition: Discharge to Home or Self Care Condition: Good Departure Forms: ED Discharge - Pt. Copy, Patient Portal Self Enrollment Instructions: Gastritis Home Medications: Ambulatory Orders Omeprazole 20 mg PO BID #60 cap 11/29/16 Famotidine 20 mg PO DAILY #100 tab 01/15/17 Famotidine 20 mg PO BID #60 tab 01/21/17 Sucralfate Tab [Carafate Tab] 1 gm PO QID #60 tab 01/21/17 Hyoscyamine Sulfate [Levsin] 0.125 mg PO TID PRN #20 tab 02/11/17 Ranitidine HCl [Ranitidine Maximum Streng] 150 mg PO BID #60 tab 02/11/17 Sucralfate Tab [Carafate Tab] 1 gm PO QID #60 tab 02/11/17 Hyoscyamine Sulfate [Levsin] 0.125 mg PO TID #20 tab 02/17/17 Ranitidine HCl 150 mg PO ACHS #60 tab 02/17/17 Sucralfate Tab [Carafate Tab] 1 gm PO QID #60 tab 02/17/17 Famotidine 20 mg PO BID #60 tab 03/19/17 Famotidine 20 mg PO BID #60 tab 03/19/17 Sucralfate Tab [Carafate Tab] 1 gm PO QID #120 tab 03/19/17 Sucralfate Tab [Carafate Tab] 1 gm PO QID #120 tab 03/19/17 Esomeprazole Magnesium [Nexium] 40 mg PO DAILY #15 cap 03/24/17
[2017-03-24] MEDS: SODIUM CHLORIDE 0.9% (FLUSH) 10 ML SYG IV PRN ×2 (17:04→17:29)
[2017-03-24] MEDS ORDERED: PANTOPRAZOLE SODIUM IV 40 MG VIAL IV ONE (17:24)
[2017-03-24 17:27] VITALS: BP 128/90; O2SAT 98
== END 2017-03-24 17:52 | disposition home or self-care (01) ==
LOC: ER 15:51
DX: K29.00 Acute gastritis without bleeding (principal); K21.9 Gastro-esophageal reflux disease without esophagitis; Z79.899 Other long term (current) drug therapy; Z87.891 Personal history of nicotine dependence
CPT/HCPCS: 36415; 71010; 80048; 80076; 82550; 82553; 83880; 84484; 85025; 85610; 85730; J2405

== ENCOUNTER 2017-05-08 18:26 | Emergency (ER) | payer SELFPAY ==
[2017-05-08] MEDS ORDERED: IBUPROFEN 200 MG TAB PO ONE (19:12)
[2017-05-08] MEDS ORDERED: cefTRIAXone SODIUM 1 GM VIAL IM ONE (19:12)
--- NOTE | 2017-05-08 19:15 | ED.PDOC ---
History of Present Illness - General Chief Complaint: Skin/Abrasion/Tear Stated Complaint: Infected tattoo on left hand Time Seen by Provider: 05/08/17 18:47 Source: patient, RN notes reviewed, Vital Signs reviewed Exam Limitations: no limitations - History of Present Illness Initial Comments: Patient comes in with c/o infected tattoo on his left hand. He got a tattoo and is concerned that the needle was not clean. He also has a mild WEN. Timing/Duration: yesterday Severity: mild Location: hands Improving Factors: nothing Worsening Factors: nothing Associated Symptoms: denies symptoms Allergies/Adverse Reactions: Allergies NO KNOWN ALLERGY Allergy (Verified 03/24/17 15:57) Home Medications: Ambulatory Orders Omeprazole 20 mg PO BID #60 cap 11/29/16 Famotidine 20 mg PO DAILY #100 tab 01/15/17 Famotidine 20 mg PO BID #60 tab 01/21/17 Sucralfate Tab [Carafate Tab] 1 gm PO QID #60 tab 01/21/17 Hyoscyamine Sulfate [Levsin] 0.125 mg PO TID PRN #20 tab 02/11/17 Ranitidine HCl [Ranitidine Maximum Streng] 150 mg PO BID #60 tab 02/11/17 Sucralfate Tab [Carafate Tab] 1 gm PO QID #60 tab 02/11/17 Hyoscyamine Sulfate [Levsin] 0.125 mg PO TID #20 tab 02/17/17 Ranitidine HCl 150 mg PO ACHS #60 tab 02/17/17 Sucralfate Tab [Carafate Tab] 1 gm PO QID #60 tab 02/17/17 Famotidine 20 mg PO BID #60 tab 03/19/17 Famotidine 20 mg PO BID #60 tab 03/19/17 Sucralfate Tab [Carafate Tab] 1 gm PO QID #120 tab 03/19/17 Sucralfate Tab [Carafate Tab] 1 gm PO QID #120 tab 03/19/17 Esomeprazole Magnesium [Nexium] 40 mg PO DAILY #15 cap 03/24/17 Sulfa/Trimeth 800/160 (Ds) Tab [Bactrim DS Tab] 1 ea PO BID #14 tab 05/08/17 Review of Systems - Review of Systems Constitutional: States: no symptoms reported Respiratory: States: no symptoms reported Cardiology: States: no symptoms reported Musculoskeletal: States: no symptoms reported Skin: States: see HPI Neurological: States: headache All other Systems: No Change from Baseline Past Medical History (General) - Patient Medical History Hx Seizures: No Hx Stroke: No Hx Dementia: No Hx Asthma: No Hx of COPD: No Hx Cardiac Disorders: No Hx Congestive Heart Failure: No Hx Pacemaker: No Hx Hypertension: No Hx Thyroid Disease: No Hx Diabetes: No Hx Gastroesophageal Reflux: No Hx Renal Disease: No Hx Cancer: No Hx of HIV: No Hx Hepatitis C: No Hx MRSA: No Surgical History: no surgical history - Vaccination History Hx Tetanus, Diphtheria Vaccination: No Hx Influenza Vaccination: No Hx Pneumococcal Vaccination: No Immunizations Up to Date: No - Social History Hx Tobacco Use: Yes Cigarettes Packs Per Day: 1 Hx Chewing Tobacco Use: No Hx Alcohol Use: No Hx Substance Use: No Hx Substance Use Treatment: No Hx Depression: No Feels Threatened In Home Enviroment: No Feels Threatened In a Relationship: No Hx Physical Abuse: No Hx Emotional Abuse: No Hx Suspected Abuse: No - Activities of Daily Living Hospice Agency (if applicable):: None - Female History Patient : No - Triage Comment ED Triage Comment: Pt states he performed placing a tatto to top of left hand last night. Comes now, with slight swelling noted and thinks it may be infected and wants to have it checked out. Pain is 1-2 states. Family Medical History - Family History Mother Family History: No Known Living Status: Still Living Hx Family Asthma: No Hx Family Congestive Heart Failure: No Physical Exam - Physical Exam General Appearance: Alert, Comfortable, No apparent distress, Well Developed, Well Groomed, Well Hydrated, Well Nourished Respiratory: no respiratory distress Extremity: normal range of motion, non-tender, normal inspection Neurologic: alert, normal mood/affect, oriented x 3 Skin Exam: warm/dry, normal color Skin Problem Location: upper extremities - Dorsum of left hand Skin Character: erythema, swelling, warm Comments: Vital Signs 05/08/17 19:05 Temperature 98.8 F Pulse Rate [ 82 left radial] Respiratory 18 Rate Blood Pressure 130/88 [Left Arm] O2 Sat by Pulse 95 Oximetry Progress - Progress Progress: 05/08/17 19:18 Will given Ibuprofen 800mg and Rocephin 1gm IM Departure - Departure Clinical Impression: Cellulitis Qualifiers: Site of cellulitis: extremity Site of cellulitis of extremity: upper extremity Laterality: left Qualified Code(s): L03.114 - Cellulitis of left upper limb Time of Disposition: 19:18 Disposition: Discharge to Home or Self Care Condition: Good Departure Forms: ED Discharge - Pt. Copy, Patient Portal Self Enrollment Instructions: DI for Cellulitis -- Adult Diet: resume usual diet Activity: increase activity as tolerated Referrals: Sylvia Urrutia NP [Primary Care Provider] - 1-5 Days Prescriptions: Sulfa/Trimeth 800/160 (Ds) Tab [Bactrim DS Tab] 1 ea PO BID #14 tab Home Medications: Ambulatory Orders Omeprazole 20 mg PO BID #60 cap 11/29/16 Famotidine 20 mg PO DAILY #100 tab 01/15/17 Famotidine 20 mg PO BID #60 tab 01/21/17 Sucralfate Tab [Carafate Tab] 1 gm PO QID #60 tab 01/21/17 Hyoscyamine Sulfate [Levsin] 0.125 mg PO TID PRN #20 tab 02/11/17 Ranitidine HCl [Ranitidine Maximum Streng] 150 mg PO BID #60 tab 02/11/17 Sucralfate Tab [Carafate Tab] 1 gm PO QID #60 tab 02/11/17 Hyoscyamine Sulfate [Levsin] 0.125 mg PO TID #20 tab 02/17/17 Ranitidine HCl 150 mg PO ACHS #60 tab 02/17/17 Sucralfate Tab [Carafate Tab] 1 gm PO QID #60 tab 02/17/17 Famotidine 20 mg PO BID #60 tab 03/19/17 Famotidine 20 mg PO BID #60 tab 03/19/17 Sucralfate Tab [Carafate Tab] 1 gm PO QID #120 tab 03/19/17 Sucralfate Tab [Carafate Tab] 1 gm PO QID #120 tab 03/19/17 Esomeprazole Magnesium [Nexium] 40 mg PO DAILY #15 cap 03/24/17 Sulfa/Trimeth 800/160 (Ds) Tab [Bactrim DS Tab] 1 ea PO BID #14 tab 05/08/17
[2017-05-08] MEDS ORDERED: LIDOCAINE 1% 10 ML VIAL INJ ONE (19:21)
[2017-05-08 19:50] VITALS: BP 128/86; TEMP 98.5; O2SAT 98
== END 2017-05-08 19:54 | disposition home or self-care (01) ==
LOC: ER 18:26
DX: L03.114 Cellulitis of left upper limb (principal); F17.210 Nicotine dependence, cigarettes, uncomplicated

== ENCOUNTER 2017-06-01 05:37 | Emergency (ER) | payer SELFPAY ==
--- NOTE | 2017-06-01 06:03 | ED.PDOC ---
History of Present Illness - General Source: patient, RN notes reviewed, family - History of Present Illness Timing/Duration: constant Severity: moderate Worsening Factors: eating Associated Symptoms: chest pain - 42 YEAR OLD BLACK MALE COMPLAINTS OF NON RADIATING ANTERIOR CHEST PAIN BEGAN 9 PM 2 HOURS AFTEWR DINNER LASTED 20 TO 30 MIN RESOLVED WENT TO SLEEP AND THIS MORNING AROUND 5 AM PAIN WOKE HIM UP HE HAS NEVER EXPERIENCED THIS TYPE OF PAIN BEFORE HE HAS NO DM HTN DISLIPIDEMIA FAMILY HISTORY OF CAD HE DISCRIBES THE PAIN BOTH SHARP AND DULL NO RADIATION NO ASSOCIATED SHORTNESS OF BREATH DIZZINESS NAUSEA OR DIAPHORESIS <Stephanie Benjamin - Last Filed: 06/01/17 06:14> <Dionte Fields - Last Filed: 06/01/17 08:39> - General Chief Complaint: Cardiovascular Problem Stated Complaint: chest pain Time Seen by Provider: 06/01/17 05:58 - History of Present Illness Allergies/Adverse Reactions: Allergies NO KNOWN ALLERGY Allergy (Verified 06/01/17 05:53) Home Medications: Ambulatory Orders Chlordiazepoxide HCl-Clidinium [Librax] 1 ea PO BID #14 cap 06/01/17 Ranitidine HCl 150 mg PO BID #120 tab 06/01/17 Sucralfate Tab [Carafate Tab] 1 gm PO Q6HRS #60 tab 06/01/17 Review of Systems - Review of Systems Constitutional: States: no symptoms reported EENTM: States: no symptoms reported Respiratory: States: no symptoms reported Cardiology: States: see HPI Gastrointestinal/Abdominal: States: no symptoms reported Genitourinary: States: no symptoms reported Musculoskeletal: States: no symptoms reported Neurological: States: no symptoms reported Endocrine: States: no symptoms reported All other Systems: Reviewed and Negative <Stephanie Benjamin - Last Filed: 06/01/17 06:14> Past Medical History (General) - Patient Medical History Hx Seizures: No Hx Stroke: No Hx Dementia: No Hx Asthma: No Hx of COPD: No Hx Cardiac Disorders: No Hx Congestive Heart Failure: No Hx Pacemaker: No Hx Hypertension: No Hx Thyroid Disease: No Hx Diabetes: No Hx Gastroesophageal Reflux: No Hx Renal Disease: No Hx Cancer: No Hx of HIV: No Hx Hepatitis C: No Hx MRSA: No Surgical History: no surgical history - Vaccination History Hx Tetanus, Diphtheria Vaccination: No Hx Influenza Vaccination: No Hx Pneumococcal Vaccination: No - Social History Hx Tobacco Use: Yes Hx Chewing Tobacco Use: No Hx Alcohol Use: No Hx Substance Use: No Hx Substance Use Treatment: No Hx Depression: No Hx Physical Abuse: No Hx Emotional Abuse: No Hx Suspected Abuse: No - Female History Patient : No <Stephanie Benjamin Filed: 06/01/17 06:14> Family Medical History - Family History Mother Family History: No Known Living Status: Still Living Hx Family Asthma: No Hx Family Congestive Heart Failure: No <Stephanie Benjamin Filed: 06/01/17 06:14> Physical Exam - Physical Exam General Appearance: Alert, Comfortable Eye Exam: bilateral normal Ears, Nose, Throat: hearing grossly normal, normal ENT inspection, normal pharynx Neck: non-tender, full range of motion Respiratory: lungs clear, normal breath sounds, no respiratory distress, no accessory muscle use, respiratory distress Cardiovascular/Chest: normal peripheral pulses, regular rate, rhythm, no edema, no gallop, no JVD, no murmur Gastrointestinal/Abdominal: normal bowel sounds, soft, no organomegaly, no pulsatile mass - HE HAS EPIGASTRIC TENDERNESS ON REPEATED EXAM , tenderness Back Exam: normal inspection Extremity: normal range of motion, non-tender, normal inspection <Stephanie Benjamin Filed: 06/01/17 06:14> Progress - EKG/XRAY/CT EKG: Sinus, no ST T wave changes <Stephanie Benjamin Filed: 06/01/17 06:14> - Progress Progress: 06/01/17 08:30 Allergies NO KNOWN ALLERGY Allergy (Verified 06/01/17 05:53) Clinical Data Height 5 ft 11 in Weight 150 lb Visit Reason CHEST PAIN Vital Signs 06/01/17 06/01/17 05:46 07:37 Temperature 97.2 F L Pulse Rate 59 L Pulse Rate [ 59 L 60 monitor] Respiratory 18 20 Rate Blood Pressure 147/74 105/79 [Right Arm] O2 Sat by Pulse 100 100 Oximetry Intakes/Output 05/31/17 06/01/17 06/02/17 06:59 06:59 06:59 Weight 150 lb Other: Weight Measurement Method Estimated by Patient Notes 06/01/17 06:53 Pharmacy Note by Arielle Saravia Dr. administer Aspirin 324mg PO x's 1 now and Nitro 0.4mg SL x's 1 now for continued chest pain Initialized on 06/01/17 06:53 - END OF NOTE Home Medications NK [NK] 06/01/17 [History Confirmed 06/01/17 Last Taken Unknown] Interventions Care Prior to Arrival Start: 06/01/17 05: 37 Freq: Status: Active Document 06/01/17 05:46 [place] (Rec: 06/01/17 05:52 [place] ED-03) ED Cardiac Assessment* Start: 06/01/17 05: 46 Freq: Status: Active Document 06/01/17 05:46 [place] (Rec: 06/01/17 05:58 [place] ED-03) ED Rounding Assessment Start: 06/01/17 05: 46 Freq: Q1H Status: Active Document 06/01/17 05:46 [place] (Rec: 06/01/17 05:59 [place] ED-03) ED Safety Measure(s) Start: 06/01/17 05: 46 Freq: Status: Active Document 06/01/17 05:46 [place] (Rec: 06/01/17 05:56 [place] ED-03) ED Triage Start: 06/01/17 05: 37 Freq: ONCE Status: Complete Document 06/01/17 05:46 [place] (Rec: 06/01/17 05:52 [place] ED-03) ED Vital Signs Start: 06/01/17 05: 37 Freq: Q1H Status: Active Document 06/01/17 05:46 [place] (Rec: 06/01/17 05:52 [place] ED-03) Document 06/01/17 07:37 [facility] (Rec: 06/01/17 07:53 [facility] ED-03) EKG Assessment Start: 06/01/17 05: 54 Freq: ONCE Status: Complete Document 06/01/17 05:42 [place] (Rec: 06/01/17 06:02 [place] RT-01) Family Medical History Start: 06/01/17 05: 37 Freq: Status: Active Document 06/01/17 05:46 [place] (Rec: 06/01/17 05:52 [place] ED-03) General Physical Assessment Start: 06/01/17 05: 37 Freq: Status: Active Document 06/01/17 05:46 [place] (Rec: 06/01/17 05:56 [place] ED-03) Height & Weight Start: 06/01/17 05: 37 Freq: .ONCE Status: Active Document 06/01/17 05:46 [place] (Rec: 06/01/17 05:52 [place] ED-03) IV/Invasive Line/Intake Assessment Start: 06/01/17 05: 46 Freq: Status: Active Document 06/01/17 05:58 [place] (Rec: 06/01/17 05:59 [place] ED-03) Pain Assessment Start: 06/01/17 05: 37 Freq: Status: Active Document 06/01/17 05:46 [place] (Rec: 06/01/17 05:52 [place] ED-03) Document 06/01/17 07:35 [facility] (Rec: 06/01/17 07:35 [facility] ED-03) Discharge ED Provider: Dionte Fields Status: Pending SILVERMAN Time Seen by Provider: 06/01/17 05:58 Condition: Triaged At: 06/01/17 05:46 Other ED Providers: Kip Gaona Emergency Discharge Date/Time: Emergency Discharge Disposition: Discharge to Home or Self Care Clinical Impression Emergency Discharge Comment: Discharge Intervention Last Done ED Vital Signs 06/01/17 07:37 Query Result monitor -Pulse Rate 60 Respiratory Rate 20 Right Arm -Blood Pressure 105/79 -Blood Pressure Mean 87 O2 Sat by Pulse Oximetry 100 Oxygen Delivery Method Room Air Discharge Assessment General Physical Assessment 06/01/17 05:46 Query Result Level Of Consciousness Awake Alert Appropriate Follows Commands Telemetry Patient: Yes Hx Congestive Heart Failure No Cardiovascular Within Defined Norms No Capillary Refill: Immediate monitor -Pulse Rate 59 -Pulse Strength Normal -Pulse Assessment Method Monitor Cardiovascular Assessment Comment c/o mid sternum chest pain that started last night, states it has been intermitten since about 2100. states its sharp and dull pain. denies pain radiating else where. Respiratory Within Defined Norms Yes Gastrointestinal Within Defined Norms: Yes Genitourinary Within Defined Norms: Yes Integumentary Within Defined Norms Yes Musculoskeletal Within Defined Norms Yes ED Cardiac Assessment* 06/01/17 05:46 Query Result Chest Pain Complaint Yes ASA Given Prior to ED Arrival No ASA Given During This ED Visit No: MD did not order at this time Chest Pain Intensity 7 Chest Pain Description Dull Chest Pain Duration > 6 Hours Chest Pain Precipitating Factors At Rest EKG Rhythm Sinus Bradycardia Instructions: DI for Chest Pain Stand-Alone Forms: ED Discharge - Pt. Copy Patient Portal Self Enrollment Prescriptions: Visit Report - Forms: - Referrals: ED Activity Status/Phase DtTm/Value User/Action Pending SILVERMAN 06/01/17 07:21:53 Dionte Fields Ed Provider Dionte Fields MD Edit Reg Receivd 06/01/17 05:46:30 Arielle Saravia Chief Complaint Cardiovascular Problem New 06/01/17 05:46:25 Arielle Saravia Stated Complaint chest pain New 06/01/17 05:37:53 Erika Danielle Ed Provider Stephanie Benjamin MD New Medications Discontinued Medications Aspirin (Baby Aspirin) 324 mg PO ONCE ONE Stop: 06/01/17 06:53 Last Admin: 06/01/17 06:54 Dose: 324 mg Lidocaine HCl (Gi Cocktail #2) 30 ml PO ONCE ONE Stop: 06/01/17 06:07 Last Admin: 06/01/17 06:09 Dose: 30 ml Nitroglycerin (Nitrostat) 1 ea SL ONCE ONE Stop: 06/01/17 06:53 Last Admin: 06/01/17 06:54 Dose: 1 ea Pantoprazole Sodium (Protonix Iv) 40 mg IV ONCE ONE Stop: 06/01/17 07:52 Last Admin: 06/01/17 07:57 Dose: 40 mg IV Infusion Therapy Document 06/01/17 07:57 [facility] (Rec: 06/01/17 07:57 [facility] ED-09) Vascular Site Access Vascular Site #1 Right Antecubital IV Infusion Therapy IV Therapeutic Type IV Push Sucralfate (Carafate Suspension) 1 gm PO ONCE ONE Stop: 06/01/17 06:08 Last Admin: 06/01/17 06:10 Dose: 1 gm Orders 06/01/17 05:54 EKG Assessment ONCE 06/01/17 06:00 EKG STAT 06/01/17 06:05 Lidocaine Vis-Mylanta [Gi Cocktail #2] 30 ml PO .STK-MED ONE Sucralfate Suspension [Carafate Suspension] 1 gm .ROUTE .STK-MED ONE 06/01/17 06:06 Lidocaine Vis-Mylanta [Gi Cocktail #2] 30 ml PO ONCE ONE 06/01/17 06:07 Sucralfate Suspension [Carafate Suspension] 1 gm PO ONCE ONE 06/01/17 06:09 TROPONIN-I Stat 06/01/17 06:52 Aspirin [Baby Aspirin] 324 mg .ROUTE .STK-MED ONE Aspirin [Baby Aspirin] 324 mg PO ONCE ONE Nitroglycerin 0.4 mg Tab [Nitrostat] 1 ea SL ONCE ONE Nitroglycerin 0.4 mg Tab [Nitrostat] 25 ea SL .STK-MED ONE 06/01/17 07:05 CMP [COMPLETE METABOLIC PROFILE] Stat LIPASE Stat CBC (AUTOMATED) W/AUTO DIFF Stat 06/01/17 07:51 Pantoprazole Injection [Protonix IV] 40 mg IV ONCE ONE 06/01/17 07:55 TROPONIN-I Stat Laboratory 06/01/17 07:55: Troponin I < 0.02 06/01/17 07:05: Sodium 141, Potassium 4.3, Chloride 106, Carbon Dioxide 31, Anion Gap 8.3 L, BUN 8, Creatinine 1.14, BUN/Creatinine Ratio 7.0 L, Random Glucose 91, Serum Osmolality 279.2, Calcium 9.4, Total Bilirubin 0.3, AST 21, ALT 18, Alkaline Phosphatase 64, Serum Total Protein 6.6, Albumin 4.0, Globulin 2.6, Albumin/Globulin Ratio 1.5, Lipase 43 06/01/17 07:05: WBC 6.0, RBC 5.28, Hgb 15.1, Hct 45.0, MCV 85.3, MCH 28.7, MCHC 33.6, RDW 14.1, Plt Count 284, MPV 8.0, Absolute Neuts (auto) 2.70, Absolute Lymphs (auto) 2.40, Absolute Monos (auto) 0.40, Absolute Eos (auto) 0.40, Absolute Basos (auto) 0.10, Neutrophils % 45.1, Lymphocytes % 40.3, Monocytes % 6.8, Eosinophils % 6.8 H, Basophils % 1.0 06/01/17 06:09: Troponin I < 0.02 - Results/Orders Results/Orders: Last Vital Signs Temp 97.2 F L 06/01/17 05:46 Pulse 60 06/01/17 07:37 Resp 20 06/01/17 07:37 BP 105/79 06/01/17 07:37 Pulse Ox 100 06/01/17 07:37 - EKG/XRAY/CT EKG: Sinus, Unchanged from - 02/17/2017 <Dionte Fields - Last Filed: 06/01/17 08:39> Departure <Lambert Benjaminasamy - Last Filed: 06/01/17 06:14> - Departure Time of Disposition: 08:32 Diet: bland diet, other - AVOID GREASY,SPICY FOODS UNTIL BETTER <DonnieRapp R - Last Filed: 06/01/17 08:39> - Departure Clinical Impression: Chest pain Qualifiers: Chest pain type: unspecified Qualified Code(s): R07.9 - Chest pain, unspecified Disposition: Discharge to Home or Self Care Condition: Good Departure Forms: ED Discharge - Pt. Copy, Patient Portal Self Enrollment Instructions: DI for Chest Pain Prescriptions: Sucralfate Tab [Carafate Tab] 1 gm PO Q6HRS #60 tab Chlordiazepoxide HCl-Clidinium [Librax] 1 ea PO BID #14 cap Ranitidine HCl 150 mg PO BID #120 tab Home Medications: Ambulatory Orders Chlordiazepoxide HCl-Clidinium [Librax] 1 ea PO BID #14 cap 06/01/17 Ranitidine HCl 150 mg PO BID #120 tab 06/01/17 Sucralfate Tab [Carafate Tab] 1 gm PO Q6HRS #60 tab 06/01/17 Additional Instructions: RETURN TO EMERGENCY ROOM NEEDED;FOLLW UP WITH PRIMARY MD CALL FOR APPOINTMENT 06/02/2017
[2017-06-01] MEDS ORDERED: LIDOCAINE VIS-MYLANTA 30 ML UD PO ONE ×2 (06:05→06:06)
[2017-06-01] MEDS ORDERED: SUCRALFATE 1 GM/10 ML 1 GM UD ONE (06:05)
[2017-06-01] MEDS ORDERED: SUCRALFATE 1 GM/10 ML 1 GM UD PO ONE (06:07)
[2017-06-01] MEDS ORDERED: ASPIRIN (CHEWABLE) 81 MG TAB ONE (06:52)
[2017-06-01] MEDS ORDERED: NITROGLYCERIN 0.4 MG 25 EA TAB SL ONE ×2 (06:52)
[2017-06-01] MEDS ORDERED: ASPIRIN (CHEWABLE) 81 MG TAB PO ONE (06:52)
[2017-06-01] MEDS ORDERED: PANTOPRAZOLE SODIUM IV 40 MG VIAL IV ONE (07:51)
[2017-06-01 08:40] VITALS: BP 100/58; TEMP 97; O2SAT 99
== END 2017-06-01 08:43 | disposition home or self-care (01) ==
LOC: ER 05:37
DX: R07.9 Chest pain, unspecified (principal); Z87.891 Personal history of nicotine dependence

== ENCOUNTER 2017-07-22 15:39 | Emergency (ER) | payer SELFPAY ==
[2017-07-22 15:56] VITALS: TEMP 98.9
--- NOTE | 2017-07-22 16:14 | ED.PDOC ---
History of Present Illness - General Chief Complaint: GI Problem Stated Complaint: nausea Time Seen by Provider: 07/22/17 16:05 Source: patient Exam Limitations: no limitations - History of Present Illness Timing/Duration: resolved prior to arrival Severity: moderate Improving Factors: nothing Worsening Factors: nothing Associated Symptoms: denies symptoms Allergies/Adverse Reactions: Allergies NO KNOWN ALLERGY Allergy (Verified 07/22/17 15:55) Home Medications: Ambulatory Orders Chlordiazepoxide HCl-Clidinium [Librax] 1 ea PO BID #14 cap 06/01/17 Ranitidine HCl 150 mg PO BID #120 tab 06/01/17 Sucralfate Tab [Carafate Tab] 1 gm PO Q6HRS #60 tab 06/01/17 Promethazine Tab [Phenergan Tablet] 25 mg PO .Q4H PRN #12 tab 07/22/17 Review of Systems - Review of Systems Constitutional: Denies: chills, fever, malaise, weakness EENTM: Denies: nose congestion, throat pain Respiratory: Denies: cough, short of breath Cardiology: Denies: chest pain, edema Gastrointestinal/Abdominal: States: nausea. Denies: abdominal pain, diarrhea, vomiting Genitourinary: Denies: discharge, dysuria, frequency Musculoskeletal: Denies: joint pain, muscle pain Skin: Denies: rash Neurological: States: anxiety. Denies: headache, weakness Endocrine: Denies: flushing, increased thirst, increased urine Hematologic/Lymphatic: Denies: blood clots, swollen glands Past Medical History (General) - Patient Medical History Hx Seizures: No Hx Stroke: No Hx Dementia: No Hx Asthma: No Hx of COPD: No Hx Cardiac Disorders: No Hx Congestive Heart Failure: No Hx Pacemaker: No Hx Hypertension: No Hx Thyroid Disease: No Hx Diabetes: No Hx Gastroesophageal Reflux: No Hx Renal Disease: No Hx Cancer: No Hx of HIV: No Hx Hepatitis C: No Hx MRSA: No Surgical History: no surgical history - Vaccination History Hx Tetanus, Diphtheria Vaccination: No Hx Influenza Vaccination: No Hx Pneumococcal Vaccination: No - Social History Hx Tobacco Use: Yes Cigarettes Packs Per Day: 1 Hx Chewing Tobacco Use: No Hx Alcohol Use: No Hx Substance Use: Yes - Marijuana and Methamphetamines Hx Substance Use Treatment: No Hx Depression: No Hx Physical Abuse: No Hx Emotional Abuse: No Hx Suspected Abuse: No - Female History Patient : No Family Medical History - Family History Mother Family History: No Known Living Status: Still Living Hx Family Asthma: No Hx Family Congestive Heart Failure: No Physical Exam - Physical Exam General Appearance: Alert, Anxious Eye Exam: bilateral normal Ears, Nose, Throat: hearing grossly normal, normal pharynx Neck: non-tender, supple Respiratory: chest non-tender, lungs clear, normal breath sounds, no respiratory distress Cardiovascular/Chest: normal peripheral pulses, regular rate, rhythm, no edema Gastrointestinal/Abdominal: normal bowel sounds, soft, no organomegaly Rectal Exam: deferred Extremity: normal range of motion, no pedal edema Neurologic: no motor/sensory deficits, oriented x 3 Skin Exam: normal color, warm/dry Departure - Departure Clinical Impression: Gastritis Qualifiers: Gastritis type: unspecified gastritis Chronicity: acute Gastritis bleeding: without bleeding Qualified Code(s): K29.00 - Acute gastritis without bleeding Disposition: Discharge to Home or Self Care Departure Forms: ED Discharge - Pt. Copy, Patient Portal Self Enrollment Prescriptions: Promethazine Tab [Phenergan Tablet] 25 mg PO .Q4H PRN #12 tab PRN Reason: Nausea/Vomiting Home Medications: Ambulatory Orders Chlordiazepoxide HCl-Clidinium [Librax] 1 ea PO BID #14 cap 06/01/17 Ranitidine HCl 150 mg PO BID #120 tab 06/01/17 Sucralfate Tab [Carafate Tab] 1 gm PO Q6HRS #60 tab 06/01/17 Promethazine Tab [Phenergan Tablet] 25 mg PO .Q4H PRN #12 tab 07/22/17
[2017-07-22] MEDS ORDERED: ONDANSETRON INJ 4 MG/2 ML VIAL IV ONE (16:15)
[2017-07-22] MEDS ORDERED: PANTOPRAZOLE SODIUM IV 40 MG VIAL IV ONE (16:16)
[2017-07-22 17:36] VITALS: BP 127/85; O2SAT 98
== END 2017-07-22 17:37 | disposition home or self-care (01) ==
LOC: ER 15:39
DX: K29.00 Acute gastritis without bleeding (principal); F17.210 Nicotine dependence, cigarettes, uncomplicated
CPT/HCPCS: 36415; 80053; 85025; J2405

== ENCOUNTER 2017-11-16 11:23 | Emergency (ER) | payer SELFPAY ==
[2017-11-16 11:47] VITALS: TEMP 98.7; O2SAT 98
--- NOTE | 2017-11-16 12:43 | ED.PDOC ---
History of Present Illness - General Chief Complaint: GI Problem Stated Complaint: shot up meth yesterday Time Seen by Provider: 11/16/17 11:28 Source: patient, family Exam Limitations: no limitations - History of Present Illness Initial Comments: Patient presents complaining of not feeling well. He says that it is because he injected methamphetamines intravenously yesterday. He and his significant other say that it is not unusual for him to feel strange after using drugs. He has no pain complaints. He has not eaten today but says that he was going to before he came in to the E.D. but decided to wait. No other complaints. He denies using other recreational drugs. Timing/Duration: 24 hours Severity: mild Improving Factors: nothing Worsening Factors: nothing Associated Symptoms: denies symptoms Allergies/Adverse Reactions: Allergies NO KNOWN ALLERGY Allergy (Verified 07/22/17 15:55) Home Medications: Ambulatory Orders Chlordiazepoxide HCl-Clidinium [Librax] 1 ea PO BID #14 cap 06/01/17 Ranitidine HCl 150 mg PO BID #120 tab 06/01/17 Sucralfate Tab [Carafate Tab] 1 gm PO Q6HRS #60 tab 06/01/17 Promethazine Tab [Phenergan Tablet] 25 mg PO .Q4H PRN #12 tab 07/22/17 Review of Systems - Review of Systems Constitutional: States: no symptoms reported EENTM: States: no symptoms reported Respiratory: States: no symptoms reported Cardiology: States: no symptoms reported Gastrointestinal/Abdominal: States: no symptoms reported Genitourinary: States: no symptoms reported Musculoskeletal: States: no symptoms reported Skin: States: no symptoms reported Neurological: States: no symptoms reported Endocrine: States: no symptoms reported Hematologic/Lymphatic: States: no symptoms reported Past Medical History (General) - Patient Medical History Hx Seizures: No Hx Stroke: No Hx Dementia: No Hx Asthma: No Hx of COPD: No Hx Cardiac Disorders: No Hx Congestive Heart Failure: No Hx Pacemaker: No Hx Hypertension: No Hx Thyroid Disease: No Hx Diabetes: No Hx Gastroesophageal Reflux: No Hx Renal Disease: No Hx Cancer: No Hx of HIV: No Hx Hepatitis C: No Hx MRSA: No Surgical History: no surgical history - Vaccination History Hx Tetanus, Diphtheria Vaccination: No Hx Influenza Vaccination: No Hx Pneumococcal Vaccination: No - Social History Hx Tobacco Use: Yes Hx Chewing Tobacco Use: No Hx Alcohol Use: No Hx Substance Use: Yes - Marijuana and Methamphetamines Hx Substance Use Treatment: No Hx Depression: No Hx Physical Abuse: No Hx Emotional Abuse: No Hx Suspected Abuse: No - Female History Patient : No Family Medical History - Family History Mother Family History: No Known Living Status: Still Living Hx Family Asthma: No Hx Family Congestive Heart Failure: No Physical Exam - Physical Exam General Appearance: Alert Ears, Nose, Throat: normal ENT inspection Neck: non-tender, full range of motion, supple Respiratory: chest non-tender, lungs clear, normal breath sounds Cardiovascular/Chest: normal peripheral pulses, regular rate, rhythm, no edema Gastrointestinal/Abdominal: normal bowel sounds, non tender, soft Back Exam: normal inspection, no CVA tenderness Extremity: normal range of motion, non-tender, normal inspection, no calf tenderness Neurologic: no motor/sensory deficits, alert, normal mood/affect, oriented x 3 Skin Exam: normal color Lymphatic: no adenopathy Progress - Progress Progress: 11/16/17 13:31 CK mildly elevated. Troponin negative. UDS positive for opiods, cannaboids, and methamphetamines. Patient discharged with instructions to seek public drug abuse assistance. E.R. warnings given. Questions were elicited and answered. Patient voiced understanding and agreement with the plan. Laboratory Tests 11/16/17 11/16/17 11/16/17 12:34 12:44 12:44 WBC RBC Hgb Hct MCV MCH MCHC RDW Plt Count MPV Absolute Neuts (auto) Absolute Lymphs (auto) Absolute Monos (auto) Absolute Eos (auto) Absolute Basos (auto) Neutrophils % Lymphocytes % Monocytes % Eosinophils % Basophils % Sodium 140 Potassium 3.8 Chloride 104 Carbon Dioxide 29 Anion Gap 10.8 L BUN 12 Creatinine 1.54 H BUN/Creatinine Ratio 7.8 L Random Glucose 95 Serum Osmolality 279.0 Calcium 9.4 Total Bilirubin 1.0 AST 25 ALT 17 Alkaline Phosphatase 48 Creatine Kinase 321 H* CK-MB (CK-2) 1.6 CK-MB (CK-2) % Not Reportable Troponin I < 0.02 B-Natriuretic Peptide 39.4 Serum Total Protein 7.1 Albumin 4.4 Globulin 2.7 Albumin/Globulin Ratio 1.6 Urine Color Urine Appearance Urine pH Ur Specific [place] Urine Protein Urine Glucose (UA) Urine Ketones Urine Blood Urine Nitrite Urine Bilirubin Urine Urobilinogen Ur Leukocyte Esterase Urine RBC Urine WBC Ur Epithelial Cells Urine Bacteria Urine Opiates Screen Positive H Urine Barbiturates Negative Ur Phencyclidine Scrn Negative U Amphetamin/Meth Scrn Positive H U Benzodiazepines Scrn Negative U Cocaine Metab Screen Negative U Cannabinoids Screen Positive H 11/16/17 11/16/17 12:44 13:06 WBC 5.6 RBC 5.40 Hgb 16.0 Hct 46.0 MCV 85.1 MCH 29.7 MCHC 34.9 RDW 13.5 Plt Count 281 MPV 7.7 Absolute Neuts (auto) 3.10 Absolute Lymphs (auto) 1.80 Absolute Monos (auto) 0.50 Absolute Eos (auto) 0.10 Absolute Basos (auto) 0.00 Neutrophils % 55.8 Lymphocytes % 32.6 Monocytes % 8.5 Eosinophils % 2.4 Basophils % 0.7 Sodium Potassium Chloride Carbon Dioxide Anion Gap BUN Creatinine BUN/Creatinine Ratio Random Glucose Serum Osmolality Calcium Total Bilirubin AST ALT Alkaline Phosphatase Creatine Kinase CK-MB (CK-2) CK-MB (CK-2) % Troponin I B-Natriuretic Peptide Serum Total Protein Albumin Globulin Albumin/Globulin Ratio Urine Color Yellow Urine Appearance Clear Urine pH 7.5 Ur Specific [place] 1.015 Urine Protein 30 Urine Glucose (UA) Negative Urine Ketones 15 H Urine Blood Negative Urine Nitrite Negative Urine Bilirubin Small H Urine Urobilinogen 1.0 Ur Leukocyte Esterase Negative Urine RBC 0 Urine WBC 0 Ur Epithelial Cells 0 Urine Bacteria 0 Urine Opiates Screen Urine Barbiturates Ur Phencyclidine Scrn U Amphetamin/Meth Scrn U Benzodiazepines Scrn U Cocaine Metab Screen U Cannabinoids Screen Departure - Departure Clinical Impression: Methamphetamine abuse Disposition: Discharge to Home or Self Care Condition: Good Departure Forms: ED Discharge - Pt. Copy, Patient Portal Self Enrollment Diet: resume usual diet Activity: increase activity as tolerated Home Medications: Ambulatory Orders Chlordiazepoxide HCl-Clidinium [Librax] 1 ea PO BID #14 cap 06/01/17 Ranitidine HCl 150 mg PO BID #120 tab 06/01/17 Sucralfate Tab [Carafate Tab] 1 gm PO Q6HRS #60 tab 06/01/17 Promethazine Tab [Phenergan Tablet] 25 mg PO .Q4H PRN #12 tab 07/22/17 Additional Instructions: Call the drug abuse hotline and find out local resources for help. Return to the emergency room for worsening conditions. Do not use methamphetamines or any other recreational drugs as your risk of dying from another dose is high.
[2017-11-16 14:09] VITALS: BP 143/89
== END 2017-11-16 14:08 | disposition home or self-care (01) ==
LOC: ER 11:23
DX: F15.90 Other stimulant use, unspecified, uncomplicated (principal); F12.90 Cannabis use, unspecified, uncomplicated; Z87.891 Personal history of nicotine dependence

== ENCOUNTER 2018-01-22 10:24 | Emergency (ER) | payer SELFPAY ==
[2018-01-22 10:37] VITALS: TEMP 97.5
[2018-01-22] MEDS ORDERED: ALUM & MAG HYDROX-SIMETHICONE 30 ML, LIDOCAINE VISCOUS 2% 15 ML PO ONE ×2 (10:48)
--- NOTE | 2018-01-22 10:52 | ED.PDOC ---
History of Present Illness - General Chief Complaint: GI Problem Stated Complaint: Abdominal discomfort Time Seen by Provider: 01/22/18 10:37 Information Source: patient, RN notes reviewed, Vital Signs reviewed Exam Limitations: no limitations - History of Present Illness Initial Comments: Return of his chronic recurring gastric pain which he has been told may be an ulcer. However, he has never had an EGD. Feels identical to previous episodes, radiates to the lower thoracic midline & back in the distribution of the esophagus. Gives him a bad taste in his mouth and nausea. He is off all meds he was placed on before. Denies NSAID or alcohol use. Abdominal Pain Onset Location: epigastric Pain Radiation: no radiation Quality: burning Timing/Duration: 1-3 hours Improving Factors: nothing Worsening Factors: nothing Associated Symptoms: back pain, chest pain, heartburn, nausea/vomiting Review of Systems - Review of Systems Constitutional: States: no symptoms reported EENTM: States: no symptoms reported Respiratory: States: no symptoms reported Cardiology: States: see HPI Gastrointestinal/Abdominal: States: see HPI Genitourinary: States: no symptoms reported Musculoskeletal: States: no symptoms reported Skin: States: no symptoms reported Neurological: States: no symptoms reported - no h/o exertional CP. Past Medical History (General) - Patient Medical History Hx Seizures: No Hx Stroke: No Hx Dementia: No Hx Asthma: No Hx of COPD: No Hx Cardiac Disorders: No Hx Congestive Heart Failure: No Hx Pacemaker: No Hx Hypertension: No Hx Thyroid Disease: No Hx Diabetes: No Hx Gastroesophageal Reflux: Yes - was on carafate & Zantac Hx Renal Disease: No Hx Cancer: No Hx of HIV: No Hx Hepatitis C: No Hx MRSA: No - Vaccination History Hx Tetanus, Diphtheria Vaccination: No Hx Influenza Vaccination: No Hx Pneumococcal Vaccination: No - Social History Hx Tobacco Use: Yes Hx Chewing Tobacco Use: No Hx Alcohol Use: No Hx Substance Use: Yes - Marijuana and Methamphetamines Hx Substance Use Treatment: No Hx Depression: - Takes Lexapro Hx Physical Abuse: No Hx Emotional Abuse: No Hx Suspected Abuse: No - Female History Patient : No Family Medical History - Family History Mother Family History: No Known Living Status: Still Living Hx Family Asthma: No Hx Family Congestive Heart Failure: No Physical Exam - Physical Exam General Appearance: Alert, Comfortable, No apparent distress, Well Developed, Well Groomed, Well Hydrated, Well Nourished Eyes, Ears, Nose, Throat Exam: normal ENT inspection Neck: full range of motion, supple, normal inspection Respiratory: no respiratory distress, no accessory muscle use Cardiovascular/Chest: normal peripheral pulses, regular rate, rhythm, no edema, no JVD Gastrointestinal/Abdominal: soft, guarding, tenderness - epigastric only Rectal Exam: deferred Extremity: normal range of motion, normal inspection, no pedal edema Neurologic: no motor/sensory deficits, alert, normal mood/affect, oriented x 3 Skin Exam: normal color, warm/dry Progress - Progress Progress: 01/22/18 11:06 Says he feels better after the GI cocktail. Departure - Departure Clinical Impression: GERD (gastroesophageal reflux disease) Qualifiers: Esophagitis presence: with esophagitis Qualified Code(s): K21.0 - Gastro- esophageal reflux disease with esophagitis Time of Disposition: 11:07 Disposition: Discharge to Home or Self Care Condition: Good Departure Forms: ED Discharge - Pt. Copy, Patient Portal Self Enrollment Instructions: DI for Gastroesophageal Reflux Disease (GERD) Referrals: Theodore Ware MD [Active Staff] - 1-2 Weeks Prescriptions: Pantoprazole Tablet [Protonix] 40 mg PO DAILY 15 Days #15 tab Home Medications: Ambulatory Orders Escitalopram Oxalate [Lexapro] 20 mg PO DAILY 01/22/18 Pantoprazole Tablet [Protonix] 40 mg PO DAILY 15 Days #15 tab 01/22/18
[2018-01-22] MEDS ORDERED: LIDOCAINE HCL 2% (MOUTH-THROAT) 15 ML UD ONE (10:55)
[2018-01-22] MEDS ORDERED: ALUM & MAG HYDROX-SIMETHICONE 30 ML UD ONE (10:55)
[2018-01-22 11:23] VITALS: BP 114/72; O2SAT 98
== END 2018-01-22 11:15 | disposition home or self-care (01) ==
LOC: ER 10:24
DX: K21.0 Gastro-esophageal reflux disease with esophagitis (principal); Z87.891 Personal history of nicotine dependence

== ENCOUNTER 2018-05-24 12:01 | Emergency (ER) | payer SELFPAY ==
[2018-05-24] MEDS ORDERED: SODIUM CHLORIDE 0.9% (FLUSH) 10 ML SYG IV PRN (12:10)
[2018-05-24] MEDS ORDERED: ASPIRIN TABLET 325 MG TAB PO ONE (12:10)
[2018-05-24] MEDS ORDERED: SODIUM CHLORIDE 0.9% 500ML 500 ML IVS ONE (12:22)
--- NOTE | 2018-05-24 12:43 | ED.PDOC ---
History of Present Illness - General Chief Complaint: Chest Pain/MN Stated Complaint: chest pain Time Seen by Provider: 05/24/18 12:21 Source: patient Exam Limitations: no limitations - History of Present Illness Initial Comments: Rakesh Lemon 43 y/o male stated that 3 nights ago had non radiating sharp chest pains which woke him up from sleep lasting about 5-6 minutes then went away.No diaphoresis,no N/V,no SOB.Then this morning about 0530 h woke up with same symptoms decided to come to ER.He had been chest pain frre but wants to be checked.Had previous ER visit for chest pain symptoms but EKG and cardiac enzyme studies were normal not showing myocardial injury.He was also advised to take H2 blockers but did not get prescription also given phone for [facility] but did not follow up .No chronic medical problems. Timing/Duration: days - 3 Severity: moderate Location: central Activities at Onset: sleep Prior Chest Pain/Cardiac Workup: no prior chest pain, no prior cardiac workup Worsening Factors: nothing Aspirin Treatment Today: 325 mg x 1, provided by ED Associated Symptoms: other - see hpi Allergies/Adverse Reactions: Allergies NO KNOWN ALLERGY Allergy (Verified 01/22/18 10:37) Home Medications: Ambulatory Orders NK [NK] 05/24/18 Review of Systems - Review of Systems Constitutional: States: no symptoms reported EENTM: States: no symptoms reported Respiratory: States: no symptoms reported Cardiology: States: see HPI Gastrointestinal/Abdominal: States: no symptoms reported Genitourinary: States: no symptoms reported Musculoskeletal: States: no symptoms reported Skin: States: no symptoms reported Neurological: States: no symptoms reported Past Medical History (General) - Patient Medical History Hx Seizures: No Hx Stroke: No Hx Dementia: No Hx Asthma: No Hx of COPD: No Hx Cardiac Disorders: No Hx Congestive Heart Failure: No Hx Pacemaker: No Hx Hypertension: No Hx Thyroid Disease: No Hx Diabetes: No Hx Gastroesophageal Reflux: Yes - was on carafate & Zantac Hx Renal Disease: No Hx Cancer: No Hx of HIV: No Hx Hepatitis C: No Hx MRSA: No Surgical History: no surgical history - Vaccination History Hx Tetanus, Diphtheria Vaccination: No Hx Influenza Vaccination: No Hx Pneumococcal Vaccination: No - Social History Hx Tobacco Use: Yes Hx Chewing Tobacco Use: No Hx Alcohol Use: No Hx Substance Use: Yes - Marijuana and Methamphetamines Hx Substance Use Treatment: No Hx Depression: - Takes Lexapro Hx Physical Abuse: No Hx Emotional Abuse: No Hx Suspected Abuse: No - Female History Patient : No Family Medical History - Family History Mother Family History: No Known Living Status: Still Living Hx Family Asthma: No Hx Family Congestive Heart Failure: No Physical Exam - Physical Exam General Appearance: Alert, Comfortable, No apparent distress Eyes, Ears, Nose, Throat Exam: normal ENT inspection, pharynx normal Neck: non-tender, full range of motion, supple, normal inspection Respiratory: chest non-tender, lungs clear, normal breath sounds, no respiratory distress Cardiovascular/Chest: normal peripheral pulses, regular rate, rhythm, no murmur Peripheral Pulses: radial,right: 2+, radial,left: 2+ Gastrointestinal/Abdominal: normal bowel sounds, non tender, soft, no organomegaly Extremity: non-tender, normal inspection, no pedal edema, no calf tenderness Neurologic: alert, oriented x 3 Skin Exam: normal color, warm/dry Progress - Progress Progress: 05/24/18 14:56 Vital Signs - 8 hr 05/24/18 05/24/18 05/24/18 12:10 12:48 13:08 Temperature 98.1 F Pulse Rate [ 70 76 60 left brachial] Respiratory 20 19 20 Rate Blood Pressure 131/92 128/90 131/87 [left brachial] O2 Sat by Pulse 100 99 100 Oximetry 05/24/18 13:30 Temperature Pulse Rate [ 61 left brachial] Respiratory 20 Rate Blood Pressure 115/82 [left brachial] O2 Sat by Pulse 99 Oximetry - Results/Orders Results/Orders: 05/24/18 12:10 IV Care:Saline Lock per Protoc QSHIFT Telemetry .ONCE Sodium Chloride 0.9% (Flush) [Saline Flush Syringe] 10 ml IV PRN PRN EKG Stat Pulse Ox Stat 05/24/18 12:22 IV Care:Saline Lock per Protoc QSHIFT 05/24/18 12:30 Be Our Guest Tray (BOG) ONCE Laboratory Results - last 24 hr 05/24/18 05/24/18 05/24/18 12:22 12:29 12:29 WBC 5.1 RBC 5.37 Hgb 15.7 Hct 46.3 MCV 86.2 MCH 29.1 MCHC 33.8 RDW 14.0 Plt Count 304 MPV 7.7 Absolute Neuts (auto) 2.40 Absolute Lymphs (auto) 2.00 Absolute Monos (auto) 0.50 Absolute Eos (auto) 0.20 Absolute Basos (auto) 0.10 Neutrophils % 47.4 Lymphocytes % 38.9 Monocytes % 8.8 Eosinophils % 3.9 Basophils % 1.0 PT 11.1 H INR 1.11 PTT (SP) 23.6 D-Dimer, Quantitative 0.27 Sodium 139 Potassium 4.0 Chloride 105 Carbon Dioxide 28 Anion Gap 10.0 L BUN 7 Creatinine 1.18 BUN/Creatinine Ratio 5.9 L Random Glucose 79 Serum Osmolality 274.4 L Calcium 9.2 Magnesium 1.8 Total Bilirubin Direct Bilirubin Indirect Bilirubin AST ALT Alkaline Phosphatase Creatine Kinase 309 H* CK-MB (CK-2) 3.2 CK-MB (CK-2) % Not Reportable Troponin I < 0.02 B-Natriuretic Peptide 75.5 Serum Total Protein Albumin Urine Color Urine Appearance Urine pH Ur Specific [place] Urine Protein Urine Glucose (UA) Urine Ketones Urine Blood Urine Nitrite Urine Bilirubin Urine Urobilinogen Ur Leukocyte Esterase Urine RBC Urine WBC Ur Epithelial Cells Urine Bacteria Urine Opiates Screen Negative Urine Barbiturates Negative Ur Phencyclidine Scrn Negative U Amphetamin/Meth Scrn Negative U Benzodiazepines Scrn Negative U Cocaine Metab Screen Negative U Cannabinoids Screen Negative 05/24/18 05/24/18 05/24/18 12:29 12:58 14:17 WBC RBC Hgb Hct MCV MCH MCHC RDW Plt Count MPV Absolute Neuts (auto) Absolute Lymphs (auto) Absolute Monos (auto) Absolute Eos (auto) Absolute Basos (auto) Neutrophils % Lymphocytes % Monocytes % Eosinophils % Basophils % PT INR PTT (SP) D-Dimer, Quantitative Sodium Potassium Chloride Carbon Dioxide Anion Gap BUN Creatinine BUN/Creatinine Ratio Random Glucose Serum Osmolality Calcium Magnesium Total Bilirubin 0.5 Direct Bilirubin 0.2 Indirect Bilirubin 0.3 AST 35 ALT 27 Alkaline Phosphatase 61 Creatine Kinase CK-MB (CK-2) CK-MB (CK-2) % Troponin I < 0.02 B-Natriuretic Peptide Serum Total Protein 6.6 Albumin 3.9 Urine Color Yellow Urine Appearance Clear Urine pH 7.5 Ur Specific [place] 1.015 Urine Protein Negative Urine Glucose (UA) Negative Urine Ketones Negative Urine Blood Negative Urine Nitrite Negative Urine Bilirubin Negative Urine Urobilinogen 0.2 Ur Leukocyte Esterase Negative Urine RBC 0 Urine WBC 0 Ur Epithelial Cells 0 Urine Bacteria 0 Urine Opiates Screen Urine Barbiturates Ur Phencyclidine Scrn U Amphetamin/Meth Scrn U Benzodiazepines Scrn U Cocaine Metab Screen U Cannabinoids Screen Labs ,CXR,EKG discussed with patient no acute findings at the time of his ER visit and again emphasize the importance of getting primary Md. - EKG/XRAY/CT EKG: Sinus, no ST T wave changes, Unchanged from - 01 Jun 2017-NSR Comments: HR-82 XRAY: chest - no acute findings/radiologist Departure - Departure Clinical Impression: Chest pain Qualifiers: Chest pain type: unspecified Qualified Code(s): R07.9 - Chest pain, unspecified Time of Disposition: 14:59 Disposition: Discharge to Home or Self Care Condition: Fair Departure Forms: ED Discharge - Pt. Copy, Patient Portal Self Enrollment Instructions: DI for Chest Pain Home Medications: Ambulatory Orders NK [NK] 05/24/18 Additional Instructions: Return to Emergency room if symptoms worsens;Need to sign up with primary Md [id number];May take Zantac-75 (over the counter) 2 tablets am/pm;Baby aspirin-81 mg daily in am
[2018-05-24 12:51] VITALS: TEMP 98.1
--- NOTE | 2018-05-24 12:52 | RAD ---
EXAM DESCRIPTION: Chest,1 View CLINICAL HISTORY: 43 years Male, chest pain COMPARISON: March 24, 2017. FINDINGS: Heart size and mediastinal and hilar structures appear within normal limits, with note of slight patient rotation to the left. The lungs appear clear. No obvious pneumothorax is seen on this upright portable film. There is no significant appearing change compared to the previous study. Regional bony structures appear intact as visualized. IMPRESSION: No radiographic evidence of acute cardiopulmonary disease. Electronically signed by: Simone Interiano MD 05/24/2018 12:50 PM [facility]
[2018-05-24 13:55] VITALS: O2SAT 99
[2018-05-24 15:38] VITALS: BP 116/75
== END 2018-05-24 13:25 | disposition home or self-care (01) ==
LOC: ER 12:01
DX: R07.9 Chest pain, unspecified (principal); F32.9 Major depressive disorder, single episode, unspecified; Z79.899 Other long term (current) drug therapy; Z87.891 Personal history of nicotine dependence
CPT/HCPCS: 36415; 71045; 80048; 80076; 80307; 81001; 82550; 82553; 83880; 84484; 85025; 85379; 85610; 85730; 93005; J7040

== ENCOUNTER 2018-08-28 11:56 | Emergency (ER) | payer SELFPAY ==
--- NOTE | 2018-08-28 12:04 | ED.PDOC ---
History of Present Illness - General Time Seen by Provider: 08/28/18 12:02 Source: patient, RN notes reviewed Additional Information: 43 YEAR OLD PRESENTS WITH A BUMP AT THE ANAL OPENING HE HAS NO FEVER PAIN ASSOCIATED WITH SOME DISCOMFORT AND ITCH NO BLEEDING DURATION 4-5 DAYS HE HAS NORMAL BOWEL MOVEMENTS - History of Present Illness Timing/Duration: 1 week Severity: mild Improving Factors: nothing Worsening Factors: nothing Associated Symptoms: denies symptoms Allergies/Adverse Reactions: Allergies NO KNOWN ALLERGY Allergy (Verified 01/22/18 10:37) Home Medications: Ambulatory Orders Hydrocortisone 25 mg Supp [Anusol-HC Suppository] 1 ea ME Q12HRS #20 sup 08/28/18 Review of Systems - Review of Systems Constitutional: States: no symptoms reported EENTM: States: no symptoms reported Respiratory: States: no symptoms reported Cardiology: States: no symptoms reported Gastrointestinal/Abdominal: States: see HPI Genitourinary: States: no symptoms reported Musculoskeletal: States: no symptoms reported Skin: States: no symptoms reported Neurological: States: no symptoms reported Past Medical History (General) - Patient Medical History Hx Seizures: No Hx Stroke: No Hx Dementia: No Hx Asthma: No Hx of COPD: No Hx Cardiac Disorders: No Hx Congestive Heart Failure: No Hx Pacemaker: No Hx Hypertension: No Hx Thyroid Disease: No Hx Diabetes: No Hx Gastroesophageal Reflux: Yes - was on carafate & Zantac Hx Renal Disease: No Hx Cancer: No Hx of HIV: No Hx Hepatitis C: No Hx MRSA: No - Vaccination History Hx Tetanus, Diphtheria Vaccination: No Hx Influenza Vaccination: No Hx Pneumococcal Vaccination: No - Social History Hx Tobacco Use: Yes Hx Chewing Tobacco Use: No Hx Alcohol Use: No Hx Substance Use: Yes - Marijuana and Methamphetamines Hx Substance Use Treatment: No Hx Depression: - Takes Lexapro Hx Physical Abuse: No Hx Emotional Abuse: No Hx Suspected Abuse: No - Female History Patient : No Family Medical History - Family History Mother Family History: No Known Living Status: Still Living Hx Family Asthma: No Hx Family Congestive Heart Failure: No Physical Exam - Physical Exam General Appearance: Alert, Comfortable Eye Exam: bilateral normal Ears, Nose, Throat: hearing grossly normal, normal ENT inspection, normal pharynx Neck: non-tender, supple Respiratory: chest non-tender, lungs clear, normal breath sounds, no respiratory distress, no accessory muscle use Cardiovascular/Chest: normal peripheral pulses, regular rate, rhythm, no edema, no gallop, no JVD Gastrointestinal/Abdominal: normal bowel sounds, non tender, soft, no organomegaly Rectal Exam: hemorrhoids, other - THROBOSED HEMARROID AT3 O CLOCK POSITION 1 CM Departure - Departure Clinical Impression: Thrombosed external hemorrhoid Time of Disposition: 12:06 Disposition: Discharge to Home or Self Care Condition: Good Diet: resume usual diet Referrals: Jose Roberto Norman MD [Active Staff] - 1-2 Weeks Home Medications: Ambulatory Orders Hydrocortisone 25 mg Supp [Anusol-HC Suppository] 1 ea ME Q12HRS #20 sup 08/28/18
[2018-08-28 13:05] VITALS: BP 128/87; TEMP 98.7; O2SAT 100
== END 2018-08-28 12:10 | disposition home or self-care (01) ==
LOC: ER 11:56
DX: K64.5 Perianal venous thrombosis (principal); K21.9 Gastro-esophageal reflux disease without esophagitis; Z87.891 Personal history of nicotine dependence

== ENCOUNTER 2018-09-22 08:33 | Emergency (ER) | payer SELFPAY ==
--- NOTE | 2018-09-22 09:09 | ED.PDOC ---
History of Present Illness - General Chief Complaint: Headache Stated Complaint: Pt complains of headache since 0130 this AM Time Seen by Provider: 09/22/18 08:59 Source: patient Exam Limitations: no limitations - History of Present Illness Initial Comments: Rakesh Lemon 43 y/o male stated that he has intermittent dull headache on top of his head which had been going on since 0130 this morning.Denies blurry vision,N/V,weakness,numbness,dysarthria or fever.No history of recent or remote head injury. Timing/Duration: intermittent, other - see hpi Severity: moderate Improving Factors: nothing Worsening Factors: nothing Associated Symptoms: denies symptoms Allergies/Adverse Reactions: Allergies NO KNOWN ALLERGY Allergy (Verified 09/22/18 08:58) Home Medications: Ambulatory Orders Prochlorperazine Tab [Compazine Tab] 10 mg PO Q8HRS PRN #10 tab 09/22/18 Prochlorperazine Tab [Compazine Tab] 10 mg PO Q8HRS PRN #10 tab 09/22/18 Prochlorperazine Tab [Compazine Tab] 10 mg PO Q8HRS PRN #10 tab 09/22/18 Review of Systems - Review of Systems Constitutional: States: no symptoms reported EENTM: States: no symptoms reported Respiratory: States: no symptoms reported Cardiology: States: no symptoms reported Gastrointestinal/Abdominal: States: no symptoms reported Genitourinary: States: no symptoms reported Musculoskeletal: States: no symptoms reported Neurological: States: see HPI, headache All other Systems: Reviewed and Negative, No Change from Baseline Past Medical History (General) - Patient Medical History Hx Seizures: No Hx Stroke: No Hx Dementia: No Hx Asthma: No Hx of COPD: No Hx Cardiac Disorders: No Hx Congestive Heart Failure: No Hx Pacemaker: No Hx Hypertension: No Hx Thyroid Disease: No Hx Diabetes: No Hx Gastroesophageal Reflux: Yes - was on carafate & Zantac Hx Renal Disease: No Hx Cancer: No Hx of HIV: No Hx Hepatitis C: No Hx MRSA: No Surgical History: no surgical history - Vaccination History Hx Tetanus, Diphtheria Vaccination: No Hx Influenza Vaccination: No Hx Pneumococcal Vaccination: No Immunizations Up to Date: - Unk - Social History Hx Tobacco Use: Yes Years Tobacco Use: 20 - presently vapes Hx Chewing Tobacco Use: No Hx Alcohol Use: No Hx Substance Use: No Hx Substance Use Treatment: No Hx Depression: Yes Hx Physical Abuse: No Hx Emotional Abuse: No Hx Suspected Abuse: No - Female History Patient : No Family Medical History - Family History Mother Family History: No Known Living Status: Still Living Hx Family Asthma: No Hx Family Congestive Heart Failure: No Physical Exam - Physical Exam General Appearance: Alert, No apparent distress, Well Groomed, Other - speech fluent Eye Exam: bilateral normal Ears, Nose, Throat: hearing grossly normal, normal ENT inspection, normal pharynx Neck: non-tender, supple, normal inspection Respiratory: chest non-tender, lungs clear, normal breath sounds Cardiovascular/Chest: normal peripheral pulses, regular rate, rhythm, no murmur Peripheral Pulses: radial,right: 2+, radial,left: 2+ Gastrointestinal/Abdominal: non tender, soft Back Exam: normal inspection, no CVA tenderness, no vertebral tenderness Extremity: no pedal edema, no calf tenderness 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 tested, no motor/sensory deficits, alert, oriented x 3 Skin Exam: normal color, warm/dry Progress - Progress Progress: 09/22/18 10:41 Laboratory Results - last 24 hr 09/22/18 09/22/18 09:14 09:14 WBC 5.1 RBC 5.49 Hgb 16.0 Hct 47.1 MCV 85.9 MCH 29.2 MCHC 34.0 RDW 13.5 Plt Count 263 MPV 7.4 Absolute Neuts (auto) 2.60 Absolute Lymphs (auto) 1.70 Absolute Monos (auto) 0.50 Absolute Eos (auto) 0.20 Absolute Basos (auto) 0.00 Neutrophils % 50.6 Lymphocytes % 33.2 Monocytes % 10.5 H Eosinophils % 4.9 Basophils % 0.8 Sodium 139 Potassium 3.9 Chloride 106 Carbon Dioxide 24 Anion Gap 12.9 BUN 18 Creatinine 1.23 BUN/Creatinine Ratio 14.6 Random Glucose 81 Serum Osmolality 278.5 Calcium 9.2 Total Bilirubin 0.7 AST 52 H ALT 24 Alkaline Phosphatase 53 Serum Total Protein 7.0 Albumin 4.3 Globulin 2.7 Albumin/Globulin Ratio 1.6 09/22/18 10:42 Vital Signs - 8 hr 09/22/18 08:50 Temperature 97.6 F Pulse Rate [ 85 Right Radial] Respiratory 16 Rate Blood Pressure 129/81 [Left Arm] O2 Sat by Pulse 98 Oximetry Discuss all test results with patient - EKG/XRAY/CT CT Ordered: Yes - HEAD-no acute abnormalities noted Departure - Departure Clinical Impression: Headache Qualifiers: Headache type: unspecified Headache chronicity pattern: unspecified pattern Intractability: not intractable Qualified Code(s): R51 - Headache Time of Disposition: 10:43 Disposition: Discharge to Home or Self Care Condition: Fair Departure Forms: ED Discharge - Pt. Copy, Patient Portal Self Enrollment Instructions: DI for Headache Prescriptions: Prochlorperazine Tab [Compazine Tab] 10 mg PO Q8HRS PRN #10 tab PRN Reason: Headache Or Mild Pain Prochlorperazine Tab [Compazine Tab] 10 mg PO Q8HRS PRN #10 tab PRN Reason: Headache Or Mild Pain Prochlorperazine Tab [Compazine Tab] 10 mg PO Q8HRS PRN #10 tab PRN Reason: Headache Or Mild Pain Home Medications: Ambulatory Orders Prochlorperazine Tab [Compazine Tab] 10 mg PO Q8HRS PRN #10 tab 09/22/18 Prochlorperazine Tab [Compazine Tab] 10 mg PO Q8HRS PRN #10 tab 09/22/18 Prochlorperazine Tab [Compazine Tab] 10 mg PO Q8HRS PRN #10 tab 09/22/18 Additional Instructions: May take ALEVE 1-2 tablets am/pm for headache(OVER THE COUNTER)Andres to sign up with primary Md for recheck 28 Sep 2018
[2018-09-22] MEDS ORDERED: KETOROLAC TROMETHAMINE INJ 30 MG/ML VIAL IV ONE (09:13)
[2018-09-22] MEDS ORDERED: METOCLOPRAMIDE HCL INJ 10 MG/2 ML VIAL IV ONE (09:13)
--- NOTE | 2018-09-22 09:44 | CT ---
EXAM DESCRIPTION: Head CLINICAL HISTORY: headache COMPARISON: None TECHNIQUE: Noncontrast transaxial CT images of the head are obtained from base to vertex. This exam was performed according to our departmental dose-optimization program, which includes automated exposure control, adjustment of the mA and/or kV according to patient size and/or use of iterative reconstruction technique. FINDINGS: The midline structures are not displaced. The sulci are age appropriate. The lateral, third, and fourth ventricles are normal in size, shape, and anatomic positioning. There is no evidence of mass, mass effect, hydrocephalus, or acute intracranial hemorrhage. No abnormal extra axial fluid collections are seen. Normal queen-white differentiation is seen. The visualized bone windows show no depressed skull fracture or significant abnormality. The visualized paranasal sinuses shows mild mucosal thickening in the ethmoid air cells and left maxillary sinus.. IMPRESSION: 1. No acute abnormality is seen on noncontrast CT of the head. Electronically signed by: Marko Srinivasan MD 09/22/2018 9:41 AM CDT
[2018-09-22 11:01] VITALS: BP 116/75; TEMP 96.3; O2SAT 99
== END 2018-09-22 11:00 | disposition home or self-care (01) ==
LOC: ER 08:33
DX: R51 Headache (principal); F32.9 Major depressive disorder, single episode, unspecified; F17.290 Nicotine dependence, other tobacco product, uncomplicated; K21.9 Gastro-esophageal reflux disease without esophagitis
CPT/HCPCS: 36415; 70450; 80053; 85025; J1885; J2765

== ENCOUNTER 2018-12-13 15:36 | Emergency (ER) | payer SELFPAY ==
[2018-12-13] MEDS ORDERED: ASPIRIN TABLET 325 MG TAB PO ONE (15:57)
[2018-12-13] MEDS ORDERED: ALUM & MAG HYDROX-SIMETHICONE 30 ML, LIDOCAINE VISCOUS 2% 15 ML PO ONE ×2 (15:57)
[2018-12-13] MEDS ORDERED: LIDOCAINE HCL 2% (MOUTH-THROAT) 15 ML UD ONE (16:02)
[2018-12-13] MEDS ORDERED: ALUM & MAG HYDROX-SIMETHICONE 30 ML UD ONE (16:02)
--- NOTE | 2018-12-13 16:29 | RAD ---
EXAM DESCRIPTION: Chest,1 View CLINICAL HISTORY:43 years Male, heada sowmya, chest pain Comparison: May 24, 2018 FINDINGS: No focal lung consolidation. No pleural effusion. No pneumothorax. Cardiac and mediastinal silhouette is unremarkable. No acute osseous abnormality. Soft tissues are unremarkable. IMPRESSION: No acute findings. No focal lung consolidation. Electronically signed by: Cali Contreras MD 12/13/2018 4:27 PM CDT
[2018-12-13] MEDS ORDERED: SODIUM CHLORIDE 0.9% 1000ML 1,000 ML IVS ONE (16:32)
[2018-12-13] MEDS ORDERED: traMADol HCL 50 MG TAB PO ONE (16:49)
[2018-12-13] MEDS ORDERED: KETOROLAC TROMETHAMINE INJ 30 MG/ML VIAL IV ONE (16:49)
--- NOTE | 2018-12-13 19:39 | ED.PDOC ---
History of Present Illness - General Chief Complaint: Cardiovascular Problem Stated Complaint: chest pain, headache Time Seen by Provider: 12/13/18 15:43 Source: patient Exam Limitations: no limitations - History of Present Illness Initial Comments: the patient's 43-year-old Afro-[place]ian male presenting to the emergency room secondary to epigastric discomfort and substernal chest discomfort along with a headache for the last hour or so. No nausea or vomiting. The patient has had multiple visits for gastritis and esophagitis in the past but is not taking any medications for it. He has not yet found a primary care doctor. He denies any illicit substance abuse. Such symptoms came on while the patient was at rest. He had not actually anything for approximately 18 hours. No syncope. No palpitations. He is mildly anxious. Pain is not made worse with movement or exertion. Pain is not worse with palpation except for the epigastric area. the patient does have a very long-standing history of noncompliance with his GI medications. He is not currently taking any. Timing/Duration: 1 hour Severity: moderate Improving Factors: nothing Worsening Factors: nothing Associated Symptoms: headaches, malaise Allergies/Adverse Reactions: Allergies NO KNOWN ALLERGY Allergy (Verified 12/13/18 15:56) Home Medications: Ambulatory Orders Famotidine 20 mg PO DAILY #30 tab 12/13/18 Sucralfate Tab [Carafate Tab] 1 gm PO QID #120 tab 12/13/18 Review of Systems - Review of Systems Constitutional: States: no symptoms reported EENTM: States: no symptoms reported Respiratory: States: no symptoms reported Cardiology: States: no symptoms reported Gastrointestinal/Abdominal: States: see HPI Genitourinary: States: no symptoms reported Musculoskeletal: States: no symptoms reported Skin: States: no symptoms reported Neurological: States: headache Endocrine: States: no symptoms reported Hematologic/Lymphatic: States: no symptoms reported All other Systems: No Change from Baseline Past Medical History (General) - Patient Medical History Hx Seizures: No Hx Stroke: No Hx Dementia: No Hx Asthma: No Hx of COPD: No Hx Cardiac Disorders: No Hx Congestive Heart Failure: No Hx Pacemaker: No Hx Hypertension: No Hx Thyroid Disease: No Hx Diabetes: No Hx Gastroesophageal Reflux: Yes - was on carafate & Zantac Hx Renal Disease: No Hx Cancer: No Hx of HIV: No Hx Hepatitis C: No Hx MRSA: No Surgical History: no surgical history - Vaccination History Hx Tetanus, Diphtheria Vaccination: No Hx Influenza Vaccination: No Hx Pneumococcal Vaccination: No - Social History Hx Tobacco Use: Yes Hx Chewing Tobacco Use: No Hx Alcohol Use: No Hx Substance Use: Yes Hx Substance Use Treatment: No Hx Depression: Yes Hx Physical Abuse: No Hx Emotional Abuse: No Hx Suspected Abuse: No - Activities of Daily Living Hospice Agency (if applicable):: None - Female History Patient : No Family Medical History - Family History Mother Family History: No Known Living Status: Still Living Hx Family Asthma: No Hx Family Congestive Heart Failure: No Physical Exam - Physical Exam General Appearance: Alert, Comfortable, No apparent distress Eye Exam: bilateral normal Ears, Nose, Throat: hearing grossly normal, normal ENT inspection Neck: full range of motion, supple Respiratory: lungs clear, normal breath sounds, no respiratory distress, no accessory muscle use Cardiovascular/Chest: normal peripheral pulses, regular rate, rhythm, no edema Peripheral Pulses: radial,right: 2+, radial,left: 2+, dorsalis pedis,right: 2+, dorsalis pedis,left: 2+ Gastrointestinal/Abdominal: soft, other - mild epigastric discomfort palpation. No rebound or peritoneal signs. No palpable mass. 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 It is likely the patient had some mild hypoglycemia as he has not eaten for quite a while. This may have contributed. He does have a long- standing history of gastritis and esophagitis and does need to remain on medications. He will be written for Carafate and Pepcid to take over the next month. He was given medications for his headache. He does need to keep well hydrated and try to eat regularly. He needs to obtain a primary care doctor and follow up with them. He needs to avoid illicit substance abuse. 2 sets of cardiac enzymes were encouraging, EKG was within normal limits and chest x-ray was reassuring. ER warnings were given. - Results/Orders Results/Orders: 12/13/18 15:45 EKG STAT 12/13/18 15:56 Telemetry .CONTINUOUS Laboratory Results - last 24 hr 12/13/18 12/13/18 12/13/18 15:56 15:56 15:57 WBC 4.8 RBC 5.35 Hgb 15.4 Hct 46.1 MCV 86.2 MCH 28.8 MCHC 33.4 RDW 13.8 Plt Count 245 MPV 8.4 Absolute Neuts (auto) 1.80 Absolute Lymphs (auto) 2.30 Absolute Monos (auto) 0.40 Absolute Eos (auto) 0.30 Absolute Basos (auto) 0.00 Neutrophils % 38.1 L Lymphocytes % 47.2 Monocytes % 8.1 Eosinophils % 5.6 H Basophils % 1.0 PT INR PTT (SP) Sodium 139 Potassium 3.9 Chloride 104 Carbon Dioxide 30 Anion Gap 8.9 L BUN 7 Creatinine 1.36 H BUN/Creatinine Ratio 5.1 L POC Glucose 81 Random Glucose 90 Serum Osmolality 275.0 Calcium 8.8 Total Bilirubin 0.6 AST 23 ALT 18 Alkaline Phosphatase 49 Creatine Kinase 647 H* CK-MB (CK-2) 1.7 CK-MB (CK-2) % 0.26 Troponin I < 0.02 B-Natriuretic Peptide 15.7 Serum Total Protein 7.0 Albumin 4.3 Globulin 2.7 Albumin/Globulin Ratio 1.6 Amylase 129 H Lipase 39 12/13/18 12/13/18 15:57 19:02 WBC RBC Hgb Hct MCV MCH MCHC RDW Plt Count MPV Absolute Neuts (auto) Absolute Lymphs (auto) Absolute Monos (auto) Absolute Eos (auto) Absolute Basos (auto) Neutrophils % Lymphocytes % Monocytes % Eosinophils % Basophils % PT 11.3 H INR 1.13 PTT (SP) 24.3 Sodium Potassium Chloride Carbon Dioxide Anion Gap BUN Creatinine BUN/Creatinine Ratio POC Glucose Random Glucose Serum Osmolality Calcium Total Bilirubin AST ALT Alkaline Phosphatase Creatine Kinase CK-MB (CK-2) CK-MB (CK-2) % Troponin I < 0.02 B-Natriuretic Peptide Serum Total Protein Albumin Globulin Albumin/Globulin Ratio Amylase Lipase chest x-ray showed no acute pathology. EKG shows mild sinus bradycardia at 54 bpm. Normal axis. Normal R-wave progression. No ST segment or T-wave changes indicative of acute ischemia. Normal QT interval. Departure - Departure Clinical Impression: Atypical chest pain, Esophagitis, Tension headache Disposition: Discharge to Home or Self Care Condition: Fair Departure Forms: ED Discharge - Pt. Copy, Patient Portal Self Enrollment Instructions: Acid Reflux (Gastroesophageal Reflux Disease), Adult (DC) Diet: bland diet Activity: increase activity as tolerated Prescriptions: Famotidine 20 mg PO DAILY #30 tab Sucralfate Tab [Carafate Tab] 1 gm PO QID #120 tab Home Medications: Ambulatory Orders Famotidine 20 mg PO DAILY #30 tab 12/13/18 Sucralfate Tab [Carafate Tab] 1 gm PO QID #120 tab 12/13/18 Additional Instructions: the patient's 43-year-old Afro-[place]ian male presenting with atypical chest pain and a headache. It is likely the patient had some mild hypoglycemia as he has not eaten for quite a while. This may have contributed. He does have a long- standing history of gastritis and esophagitis and does need to remain on medications. He will be written for Carafate and Pepcid to take over the next month. He was given medications for his headache. He does need to keep well hydrated and try to eat regularly. He needs to obtain a primary care doctor and follow up with them. He needs to avoid illicit substance abuse. 2 sets of cardiac enzymes were encouraging, EKG was within normal limits and chest x-ray was reassuring. ER warnings were given.
[2018-12-13 19:50] VITALS: BP 122/82; TEMP 98; O2SAT 100
== END 2018-12-13 19:52 | disposition home or self-care (01) ==
LOC: ER 15:36
DX: R07.89 Other chest pain (principal); K20.9 Esophagitis, unspecified; G44.209 Tension-type headache, unspecified, not intractable; R00.1 Bradycardia, unspecified; K21.9 Gastro-esophageal reflux disease without esophagitis; F32.9 Major depressive disorder, single episode, unspecified; Z91.14 Patient's other noncompliance with medication regimen; Z87.891 Personal history of nicotine dependence
CPT/HCPCS: 36415; 71045; 80053; 82150; 82550; 82553; 82948; 83690; 83880; 84484; 85025; 85610; 85730; 93005; J1885; J7030

== ENCOUNTER 2019-01-29 13:33 | Emergency (ER) | payer SELFPAY ==
--- NOTE | 2019-01-29 14:08 | ED.PDOC ---
History of Present Illness - General Chief Complaint: General Stated Complaint: Stomach is uneasy, dizziness Time Seen by Provider: 01/29/19 14:03 Source: patient Exam Limitations: no limitations - History of Present Illness Initial Comments: HE FEELS DIZZY AND HIS STOMACH SEEMS QUIZZY. HE IS SUSPICIOUS HE MIGHT HAVE DRANK SOME BAD MILK. DENIES NVD. DENIES FEVER, [id number] ABDOMINAL PAIN OR CHEST PAIN OR FEVER OR WEN. Timing/Duration: 1-3 hours Severity: mild Improving Factors: nothing Worsening Factors: nothing Associated Symptoms: denies symptoms Allergies/Adverse Reactions: Allergies NO KNOWN ALLERGY Allergy (Verified 01/29/19 13:44) Home Medications: Ambulatory Orders NK 01/29/19 Review of Systems - Review of Systems Constitutional: States: no symptoms reported EENTM: States: no symptoms reported Respiratory: States: no symptoms reported Cardiology: States: no symptoms reported Gastrointestinal/Abdominal: States: nausea Genitourinary: States: no symptoms reported Musculoskeletal: States: no symptoms reported Skin: States: no symptoms reported Neurological: States: no symptoms reported Endocrine: States: no symptoms reported Hematologic/Lymphatic: States: no symptoms reported Past Medical History (General) - Patient Medical History Hx Seizures: No Hx Stroke: No Hx Dementia: No Hx Asthma: No Hx of COPD: No Hx Cardiac Disorders: No Hx Congestive Heart Failure: No Hx Pacemaker: No Hx Hypertension: No Hx Thyroid Disease: No Hx Diabetes: No Hx Gastroesophageal Reflux: Yes - was on carafate & Zantac Hx Renal Disease: No Hx Cancer: No Hx of HIV: No Hx Hepatitis C: No Hx MRSA: No Surgical History: no surgical history - Vaccination History Hx Tetanus, Diphtheria Vaccination: No Hx Influenza Vaccination: No Hx Pneumococcal Vaccination: No - Social History Hx Tobacco Use: Yes Hx Chewing Tobacco Use: No Hx Alcohol Use: No Hx Substance Use: Yes Hx Substance Use Treatment: No Hx Depression: Yes Hx Physical Abuse: No Hx Emotional Abuse: No Hx Suspected Abuse: No - Female History Patient : No Family Medical History - Family History Mother Family History: No Known Living Status: Still Living Hx Family Asthma: No Hx Family Congestive Heart Failure: No Physical Exam - Physical Exam General Appearance: Alert, No apparent distress, Well Developed Eye Exam: bilateral normal Ears, Nose, Throat: normal ENT inspection Neck: full range of motion, supple Respiratory: chest non-tender, lungs clear, normal breath sounds, no respiratory distress Cardiovascular/Chest: regular rate, rhythm, no edema, no gallop, no murmur Gastrointestinal/Abdominal: normal bowel sounds, non tender, soft, no organomegaly Rectal Exam: deferred Extremity: normal range of motion Neurologic: alert, normal mood/affect, oriented x 3 Skin Exam: warm/dry Departure - Departure Clinical Impression: Dizziness Time of Disposition: 14:12 Disposition: Discharge to Home or Self Care Condition: Good Departure Forms: ED Discharge - Pt. Copy, Patient Portal Self Enrollment Diet: resume usual diet Activity: increase activity as tolerated Home Medications: Ambulatory Orders NK 01/29/19
[2019-01-29 14:13] VITALS: TEMP 99; O2SAT 98
[2019-01-29 14:37] VITALS: BP 131/87
== END 2019-01-29 14:25 | disposition home or self-care (01) ==
LOC: ER 13:33
DX: R42 Dizziness and giddiness (principal); F32.9 Major depressive disorder, single episode, unspecified; K21.9 Gastro-esophageal reflux disease without esophagitis; Z87.891 Personal history of nicotine dependence

== ENCOUNTER 2019-03-27 15:06 | Emergency (ER) | payer SELFPAY ==
[2019-03-27 15:26] VITALS: TEMP 98.3
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
[2019-03-27 16:31] VITALS: BP 128/75; O2SAT 96
== END 2019-03-27 16:55 | disposition home or self-care (01) ==
LOC: ER 15:06
DX: F11.129 Opioid abuse with intoxication, unspecified (principal); T43.625A Adverse effect of amphetamines, initial encounter; T43.621A Poisoning by amphetamines, accidental (unintentional), initial encounter; R20.0 Anesthesia of skin; R07.0 Pain in throat; F32.9 Major depressive disorder, single episode, unspecified; K21.9 Gastro-esophageal reflux disease without esophagitis; Z87.891 Personal history of nicotine dependence

== ENCOUNTER 2019-08-12 20:39 | Emergency (ER) | payer SELFPAY ==
[2019-08-12] MEDS ORDERED: SODIUM CHLORIDE 0.9% (FLUSH) 10 ML SYG IV PRN (21:14)
--- NOTE | 2019-08-12 21:28 | ED.PDOC ---
History of Present Illness - General Chief Complaint: General Stated Complaint: pain that comes and goes to my low chest Time Seen by Provider: 08/12/19 21:14 Source: patient, RN notes reviewed, Vital Signs reviewed Exam Limitations: no limitations - History of Present Illness Initial Comments: Patient is a 44-year-old black male who presents with complaints of upper abdominal and lower chest pain. This is been ongoing for a week. It comes and goes. Nothing seems to improve the pain it just resolves on its own. He seems to have onset of the pain when he lies down but it can come at any time. The pain is sharp and burning in nature. There is no radiation. Timing/Duration: 1 week Severity: moderate Improving Factors: nothing Worsening Factors: other - Laying supine Associated Symptoms: chest pain, nausea/vomiting - Nausea only Allergies/Adverse Reactions: Allergies NO KNOWN ALLERGY Allergy (Verified 01/29/19 13:44) Home Medications: Ambulatory Orders Omeprazole 20 mg PO DAILY #30 cap 08/12/19 Review of Systems - Review of Systems Constitutional: States: no symptoms reported, see HPI. Denies: chills, fever EENTM: States: no symptoms reported. Denies: blurred vision, double vision, throat pain Respiratory: States: no symptoms reported. Denies: cough, short of breath Cardiology: States: no symptoms reported, chest pain. Denies: palpitations, syncope Gastrointestinal/Abdominal: States: see HPI, abdominal pain, nausea. Denies: constipation, diarrhea, vomiting Genitourinary: States: no symptoms reported Musculoskeletal: States: back pain. Denies: joint pain, joint swelling, muscle pain, muscle stiffness, neck pain Skin: States: no symptoms reported Endocrine: States: no symptoms reported Hematologic/Lymphatic: States: no symptoms reported All other Systems: Reviewed and Negative Past Medical History (General) - Patient Medical History Hx Seizures: No Hx Stroke: No Hx Dementia: No Hx Asthma: No Hx of COPD: No Hx Cardiac Disorders: No Hx Congestive Heart Failure: No Hx Pacemaker: No Hx Hypertension: No Hx Thyroid Disease: No Hx Diabetes: No Hx Gastroesophageal Reflux: Yes Hx Renal Disease: No Hx Cancer: No Hx of HIV: No Hx Hepatitis C: No Hx MRSA: No Surgical History: no surgical history - Vaccination History Hx Tetanus, Diphtheria Vaccination: No Hx Influenza Vaccination: No Hx Pneumococcal Vaccination: No Immunizations Up to Date: No - Social History Hx Tobacco Use: Yes Hx Chewing Tobacco Use: No Hx Alcohol Use: No Hx Substance Use: Yes Hx Substance Use Treatment: No Hx Depression: Yes Feels Threatened In Home Enviroment: No Feels Threatened In a Relationship: No Hx Physical Abuse: No Hx Emotional Abuse: No Hx Suspected Abuse: No - Activities of Daily Living Hospice Agency (if applicable):: None - Female History Patient is a Female of Child Bearing Age (10 -59 yrs old): No Patient : No Family Medical History - Family History Mother Family History: No Known Living Status: Still Living Hx Family Asthma: No Hx Family Congestive Heart Failure: No Physical Exam - Physical Exam General Appearance: Alert, Anxious, Restless, Well Developed, Well Groomed, Well Hydrated, Well Nourished Eye Exam: bilateral normal Ears, Nose, Throat: hearing grossly normal, normal ENT inspection, normal pharynx Neck: non-tender, full range of motion, supple, normal inspection Respiratory: chest non-tender, lungs clear, normal breath sounds, no respiratory distress, no accessory muscle use Cardiovascular/Chest: normal peripheral pulses, regular rate, rhythm, no edema, no gallop, no JVD, no murmur, JVD Peripheral Pulses: radial,right: 2+, radial,left: 2+ Gastrointestinal/Abdominal: normal bowel sounds, soft, tenderness - At the sub-xiphoid process. 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 Skin Exam: normal color, warm/dry, other - Patient with extensive tattoos. Lymphatic: no adenopathy Progress - Progress Progress: Differential diagnosis: Gastritis, GERD, acute [place], pneumonia among others. 08/12/19 22:16 Patient with resolution of his chest pain after GI cocktail. EKG and chest x- ray are normal. Labs are unremarkable. Most likely gastritis with associated GERD. Will discharge patient home with a prescription for omeprazole and follow-up with PCP. I discussed the plan of care with the patient he voices understanding and agreement. Dixon Koenig M.D. #[id number] - Results/Orders Results/Orders: EXAM: Chest,1 View CLINICAL INDICATION: 44-year-old male with chest pain. TECHNIQUE: Single view, AP portable chest was obtained. COMPARISON: 12/13/2018. FINDINGS: Unremarkable cardiac and mediastinal silhouette. Heart size is normal. Lungs are clear without focal opacity, pneumothorax or pleural effusions. The visualized bones are within normal limits. IMPRESSION: No acute cardiopulmonary abnormalities. Electronically signed by: Sadia Wright MD 08/12/2019 9:59 PM BUILDING TRADES INSTRUCTOR 08/12/19 21:14 Sodium Chloride 0.9% (Flush) [Saline Flush Syringe] 3 ml IV PRN PRN 08/12/19 21:17 IV Care:Saline Lock per Protoc QSHIFT Telemetry ONCE 08/12/19 21:20 EKG Assessment ONCE Pulse Oximetry Assessment DAILY 08/12/19 21:30 EKG STAT 08/13/19 09:00 Pulse Ox Daily Laboratory Results - last 24 hr 08/12/19 21:33 WBC 5.1 RBC 5.66 Hgb 16.5 Hct 48.3 MCV 85.4 MCH 29.1 MCHC 34.1 RDW 13.8 Plt Count 261 MPV 7.6 Absolute Neuts (auto) 2.20 Absolute Lymphs (auto) 2.20 Absolute Monos (auto) 0.40 Absolute Eos (auto) 0.30 Absolute Basos (auto) 0.00 Neutrophils % 42.4 Lymphocytes % 43.1 Monocytes % 8.1 Eosinophils % 5.5 H Basophils % 0.9 PT 11.4 H INR 1.15 PTT (SP) 20.1 L Sodium 141 Potassium 4.2 Chloride 107 Carbon Dioxide 27 Anion Gap 11.2 L BUN 14 Creatinine 1.23 BUN/Creatinine Ratio 11.4 Random Glucose 91 Serum Osmolality 281.3 Calcium 9.5 Magnesium 2.0 Creatine Kinase 169 CK-MB (CK-2) 1.0 CK-MB (CK-2) % Not Reportable Troponin I < 0.02 EKG performed on 12 August 2019 at 2137 hrs.: Sinus bradycardia 59 bpm normal axis deviation, no ST or T wave changes, otherwise normal EKG. No comparison EKG available. Departure - Departure Clinical Impression: GERD (gastroesophageal reflux disease) Qualifiers: Esophagitis presence: esophagitis presence not specified Qualified Code(s): K21.9 - Gastro-esophageal reflux disease without esophagitis Gastritis Qualifiers: Gastritis type: unspecified gastritis Chronicity: unspecified Gastritis bleeding: without bleeding Qualified Code(s): K29.70 - Gastritis, unspecified, without bleeding Time of Disposition: 22:21 Disposition: Discharge to Home or Self Care Condition: Good Departure Forms: ED Discharge - Pt. Copy, Patient Portal Self Enrollment Instructions: Gastritis (DC), Ulcer and Gastritis Diet, Acid Reflux (Gastroesophageal Reflux Disease) in Adults Prescriptions: Omeprazole 20 mg PO DAILY #30 cap Home Medications: Ambulatory Orders Omeprazole 20 mg PO DAILY #30 cap 08/12/19
[2019-08-12] MEDS ORDERED: LIDOCAINE HCL 2% (MOUTH-THROAT) 15 ML UD ONE (21:29)
[2019-08-12] MEDS: ALUM & MAG HYDROX-SIMETHICONE 30 ML, LIDOCAINE VISCOUS 2% 15 ML PO ONE ×2 (21:31)
--- NOTE | 2019-08-12 22:01 | RAD ---
EXAM: Chest,1 View CLINICAL INDICATION: 44-year-old male with chest pain. TECHNIQUE: Single view, AP portable chest was obtained. COMPARISON: 12/13/2018. FINDINGS: Unremarkable cardiac and mediastinal silhouette. Heart size is normal. Lungs are clear without focal opacity, pneumothorax or pleural effusions. The visualized bones are within normal limits. IMPRESSION: No acute cardiopulmonary abnormalities. Electronically signed by: Sadia Wright MD 08/12/2019 9:59 PM CORE DRILL OPERATOR HELPER
[2019-08-12 22:10] VITALS: O2SAT 98
[2019-08-12 22:45] VITALS: BP 116/79; TEMP 97.8
== END 2019-08-12 22:35 | disposition home or self-care (01) ==
LOC: ER 20:39
DX: K29.70 Gastritis, unspecified, without bleeding (principal); K21.9 Gastro-esophageal reflux disease without esophagitis; R00.1 Bradycardia, unspecified; F32.9 Major depressive disorder, single episode, unspecified; Z87.891 Personal history of nicotine dependence

== ENCOUNTER 2019-12-13 17:10 | Emergency (ER) | payer SELFPAY ==
--- NOTE | 2019-12-13 19:46 | ED.PDOC ---
History of Present Illness - General Chief Complaint: Dental/Mouth Stated Complaint: bump in mouth Time Seen by Provider: 12/13/19 19:45 Source: patient - History of Present Illness Initial Comments: 44 yo male who presents with CC of painful bump to his upper gums. First noticed this afternoon while he was brushing his teeth. Reports a small bump to the upper gumline near the right lateral incisor. Patient really reports constant sharp moderate severity pain without radiation to the area, worse with palpation, no medications taken for relief. Denies any tooth ache, facial swelling, fevers, chills, sore throat, drainage. Allergies/Adverse Reactions: Allergies NO KNOWN ALLERGY Allergy (Verified 01/29/19 13:44) Home Medications: Ambulatory Orders Omeprazole 20 mg PO DAILY #30 cap 08/12/19 Amoxicillin & Pot Clavulanate [Augmentin Tab] 875 mg PO BID 7 Days #14 tab 12/13/19 Review of Systems - Review of Systems Review of Systems: 12/14/19 01:25 As per HPI All other Systems: Reviewed and Negative Past Medical History (General) - Patient Medical History Hx Seizures: No Hx Stroke: No Hx Dementia: No Hx Asthma: No Hx of COPD: No Hx Cardiac Disorders: No Hx Congestive Heart Failure: No Hx Pacemaker: No Hx Hypertension: No Hx Thyroid Disease: No Hx Diabetes: No Hx Gastroesophageal Reflux: Yes Hx Renal Disease: No Hx Cancer: No Hx of HIV: No Hx Hepatitis C: No Hx MRSA: No Surgical History: no surgical history - Vaccination History Hx Tetanus, Diphtheria Vaccination: No Hx Influenza Vaccination: No Hx Pneumococcal Vaccination: No - Social History Hx Tobacco Use: Yes Hx Chewing Tobacco Use: No Hx Alcohol Use: No Hx Substance Use: Yes Hx Substance Use Treatment: No Hx Depression: Yes Hx Physical Abuse: No Hx Emotional Abuse: No Hx Suspected Abuse: No - Activities of Daily Living Hospice Agency (if applicable):: None - Female History Patient is a Female of Child Bearing Age (10 -59 yrs old): No Patient : No - Triage Comment ED Triage Comment: pt voices sore in mouth above top of teeth. pt voices it originated within the last day and has progressively gotten worse. alert and oriented x3, converses with ease. follows commands. Family Medical History - Family History Mother Family History: No Known Living Status: Still Living Hx Family Asthma: No Hx Family Congestive Heart Failure: No Physical Exam - Physical Exam General Appearance: Alert, Comfortable, No apparent distress Eye Exam: bilateral normal Ears, Nose, Throat: normal pharynx, other - To the maxillary gumline just above the right lateral incisor there is an approximately 6 mm red tender lesion with central white punctation, moderately TTP without warmth or fluctuance or drainage Neck: full range of motion, supple, normal inspection Respiratory: lungs clear, normal breath sounds, no respiratory distress, no accessory muscle use Cardiovascular/Chest: normal peripheral pulses, regular rate, rhythm, no edema, no murmur Peripheral Pulses: radial,right: 2+, radial,left: 2+ Gastrointestinal/Abdominal: non tender, soft Extremity: normal inspection Neurologic: alert, normal mood/affect, oriented x 3 Skin Exam: normal color, warm/dry Progress - Progress Progress: 12/14/19 01:28 Tender maxillary gumline lesion -Appears to be small superficial gumline abscess. Consider also dental abscess versus other. No emergent etiology seems present. -Patient stable vitals WNL, pain well controlled -We will give ibuprofen in the ED for pain control and will Rx Augmentin for small gumline abscess, first dose here. Advised to follow-up with dentist and PCP -DC to home in good condition, return warnings discussed Cristofer Diaz MD Billing #[id number] Departure - Departure Clinical Impression: Abscess of upper gum Time of Disposition: 20:12 Disposition: Discharge to Home or Self Care Condition: Good Departure Forms: ED Discharge - Pt. Copy, Patient Portal Self Enrollment Instructions: DI for Mouth Pain Diet: resume usual diet Activity: increase activity as tolerated Prescriptions: Amoxicillin & Pot Clavulanate [Augmentin Tab] 875 mg PO BID 7 Days #14 tab Home Medications: Ambulatory Orders Omeprazole 20 mg PO DAILY #30 cap 08/12/19 Amoxicillin & Pot Clavulanate [Augmentin Tab] 875 mg PO BID 7 Days #14 tab 12/13/19 Additional Instructions: Take the antibiotics as directed and finish the full course. Continue to brush gently twice daily with toothpaste. You may also gargle with warm salt water and/or mouthwash as needed. Return if symptoms worsen or other concerning symptoms develop. Follow-up with your primary care physician and with your dentist.
[2019-12-13] MEDS ORDERED: AMOXICILLIN & POT CLAVULANATE 875 MG TAB PO ONE (20:11)
[2019-12-13 20:30] VITALS: BP 99/64; TEMP 97.3; O2SAT 99
== END 2019-12-13 20:20 | disposition home or self-care (01) ==
LOC: ER 17:10
DX: K05.319 Chronic periodontitis, localized, unspecified severity (principal); F17.200 Nicotine dependence, unspecified, uncomplicated

== ENCOUNTER 2020-07-15 13:05 | Emergency (ER) | payer SELFPAY ==
[2020-07-15] MEDS ORDERED: SODIUM CHLORIDE 0.9% (FLUSH) 10 ML SYG IV PRN (13:20)
--- NOTE | 2020-07-15 13:44 | RAD ---
EXAM DESCRIPTION: Chest,1 View 07/15/2020 1:42 PM BUSINESS TRAVEL CONSULTANT CLINICAL HISTORY: 45 years, Male, abdominal pain COMPARISON: 08/12/2019. FINDINGS: Single view of the chest was obtained portable. Prior films were compared. The heart is not enlarged. The cardiomediastinal silhouette demonstrate to be unremarkable. The thoracic aorta is unremarkable. Costophrenic angles are sharp. No areas of consolidation or masses are seen. The rest of the soft tissue and bony structures demonstrate to be unremarkable. IMPRESSION: NO ACUTE CARDIOPULMONARY DISEASE SEEN. Electronically signed by: Harpal Emerson MD 07/15/2020 1:42 PM BUSINESS TRAVEL CONSULTANT
[2020-07-15 13:56] VITALS: BP 141/94; TEMP 98.9; O2SAT 99
--- NOTE | 2020-07-15 14:12 | ED.PDOC ---
History of Present Illness - General Chief Complaint: Abdominal Pain Stated Complaint: Feels "off/weird" in his abdomen Time Seen by Provider: 07/15/20 13:20 Source: patient, RN notes reviewed, Vital Signs reviewed Exam Limitations: no limitations - History of Present Illness Initial Comments: Patient is a 45-year-old -N[place]alese male who presents with complaints of his upper abdomen and lower chest not feeling right. Patient denies any pain. This started 2 to 3 hours ago. He denies any headache, dizziness, blurry vision, nausea, vomiting, diarrhea, chest pain, shortness of breath. Patient is unable to quantify the sensation he has or what is "off". Timing/Duration: 1-3 hours Severity: moderate Improving Factors: nothing Worsening Factors: nothing Associated Symptoms: denies symptoms Allergies/Adverse Reactions: Allergies NO KNOWN ALLERGY Allergy (Verified 07/15/20 13:57) Home Medications: Ambulatory Orders Omeprazole 20 mg PO DAILY #30 cap 08/12/19 Amoxicillin & Pot Clavulanate [Augmentin Tab] 875 mg PO BID 7 Days #14 tab 12/13/19 Review of Systems - Review of Systems Constitutional: States: no symptoms reported, see HPI. Denies: chills, fever, malaise, weakness EENTM: States: no symptoms reported. Denies: eye pain, blurred vision, double vision Respiratory: States: no symptoms reported. Denies: cough, short of breath, stridor, wheezing Cardiology: States: no symptoms reported. Denies: chest pain, palpitations, syncope Gastrointestinal/Abdominal: States: no symptoms reported. Denies: abdominal pain, diarrhea, nausea Genitourinary: States: no symptoms reported. Denies: dysuria, frequency Musculoskeletal: States: no symptoms reported. Denies: back pain, joint pain, joint swelling, neck pain Skin: States: no symptoms reported. Denies: change in color, rash Neurological: States: no symptoms reported. Denies: headache, tingling, tremors, weakness Endocrine: States: no symptoms reported. Denies: increased hunger, increased thirst, increased urine Hematologic/Lymphatic: States: no symptoms reported. Denies: blood clots, easy bleeding All other Systems: Reviewed and Negative Past Medical History (General) - Patient Medical History Hx Seizures: No Hx Stroke: No Hx Dementia: No Hx Asthma: No Hx of COPD: No Hx Cardiac Disorders: No Hx Congestive Heart Failure: No Hx Pacemaker: No Hx Hypertension: No Hx Thyroid Disease: No Hx Diabetes: No Hx Gastroesophageal Reflux: Yes Hx Renal Disease: No Hx Cancer: No Hx of HIV: No Hx Hepatitis C: No Hx MRSA: No Surgical History: no surgical history - Vaccination History Hx Tetanus, Diphtheria Vaccination: No Hx Influenza Vaccination: No Hx Pneumococcal Vaccination: No - Social History Hx Tobacco Use: Yes Hx Chewing Tobacco Use: No Hx Alcohol Use: Yes Hx Substance Use: No Hx Substance Use Treatment: No Hx Depression: No Hx Physical Abuse: No Hx Emotional Abuse: No Hx Suspected Abuse: No - Female History Patient is a Female of Child Bearing Age (10 -59 yrs old): No Patient : No Family Medical History - Family History Mother Family History: No Known Living Status: Still Living Hx Family Asthma: No Hx Family Congestive Heart Failure: No Physical Exam - Physical Exam General Appearance: Alert, Anxious, Restless, Well Developed, Well Groomed, Well Hydrated, Well Nourished Eye Exam: bilateral normal Ears, Nose, Throat: hearing grossly normal, normal ENT inspection, normal pharynx Neck: non-tender, full range of motion, supple Respiratory: chest non-tender, lungs clear, normal breath sounds, no respiratory distress, no accessory muscle use Cardiovascular/Chest: normal peripheral pulses, regular rate, rhythm, no edema, no gallop, no JVD, no murmur Peripheral Pulses: radial,right: 2+, radial,left: 2+ Gastrointestinal/Abdominal: normal bowel sounds, non tender, soft, no organomegaly Back Exam: normal inspection, no CVA tenderness, no vertebral tenderness Extremity: normal range of motion, non-tender, normal inspection Neurologic: pressurised container filler II-XII nml as tested, no motor/sensory deficits, alert, normal mood/affect, oriented x 3 Skin Exam: normal color, warm/dry Lymphatic: no adenopathy Progress - Progress Progress: Differential diagnosis: Pneumonia, acute AK, bowel obstruction, Covid among others. 07/15/20 14:58 Patient's lab work, EKG and chest x-ray are unremarkable. Patient is left AMA. After discussion with nursing staff, apparently patient is a frequent flyer and commonly signed out AMA. At this point I am relatively concerned about an acute AK. Patient does not have any medical problems and EKG does not show any acute cardiac disease. Dixon Koenig M.D. #[id number] - Results/Orders Results/Orders: EXAM DESCRIPTION: Chest,1 View 07/15/2020 1:42 PM MORTGAGE PROCESSOR CLINICAL HISTORY: 45 years, Male, abdominal pain COMPARISON: 08/12/2019. FINDINGS: Single view of the chest was obtained portable. Prior films were compared. The heart is not enlarged. The cardiomediastinal silhouette demonstrate to be unremarkable. The thoracic aorta is unremarkable. Costophrenic angles are sharp. No areas of consolidation or masses are seen. The rest of the soft tissue and bony structures demonstrate to be unremarkable. IMPRESSION: NO ACUTE CARDIOPULMONARY DISEASE SEEN. Electronically signed by: Harpal Emerson MD 07/15/2020 1:42 PM MORTGAGE PROCESSOR EKG performed 15 July 2020 at 1322 hrs.: Normal sinus rhythm with sinus arrhythmia at 82 bpm, normal axis deviation, no ST or T wave changes concerning for acute ischemia, normal EKG. No comparison EKG available at this time. 07/15/20 13:20 IV Care:Saline Lock per Protoc QSHIFT Telemetry ONCE Sodium Chloride 0.9% (Flush) [Saline Flush Syringe] 3 ml IV PRN PRN URINALYSIS Stat 07/15/20 13:30 EKG STAT 07/15/20 14:18 URINE DRUG SCREEN, 7 ASSAY Stat 07/16/20 09:00 Pulse Ox Daily Laboratory Results - last 24 hr 07/15/20 13:37 WBC 5.8 RBC 5.31 Hgb 15.3 Hct 44.8 MCV 84.5 MCH 28.7 MCHC 34.0 RDW 14.2 Plt Count 267 MPV 7.6 Absolute Neuts (auto) 3.40 Absolute Lymphs (auto) 1.80 Absolute Monos (auto) 0.50 Absolute Eos (auto) 0.00 Absolute Basos (auto) 0.10 Neutrophils % 58.9 Lymphocytes % 31.4 Monocytes % 8.1 Eosinophils % 0.6 L Basophils % 1.0 PT 12.1 H INR 1.22 H PTT (SP) 23.7 Sodium 139 Potassium 3.6 Chloride 104 Carbon Dioxide 27 Anion Gap 11.6 L BUN 14 Creatinine 1.22 BUN/Creatinine Ratio 11.5 Random Glucose 89 Serum Osmolality 277.5 Calcium 9.2 Magnesium 1.9 Total Bilirubin 0.9 Direct Bilirubin 0.2 Indirect Bilirubin 0.7 AST 22 ALT 24 Alkaline Phosphatase 50 Creatine Kinase 213 H* CK-MB (CK-2) 1.5 CK-MB (CK-2) % Not Reportable Troponin I < 0.02 B-Natriuretic Peptide 39.6 Serum Total Protein 7.5 Albumin 4.5 Vital Signs 07/15/20 07/15/20 13:05 13:06 Temperature 98.9 F Pulse Rate [ 97 H 97 H Pulse ox] Respiratory 14 14 Rate Blood Pressure 141/94 [L arm] O2 Sat by Pulse 99 Oximetry Departure - Departure Clinical Impression: Chest pain Qualifiers: Chest pain type: unspecified Qualified Code(s): R07.9 - Chest pain, unspecified Abdominal pain Qualifiers: Abdominal location: upper abdomen, unspecified Qualified Code(s): R10.10 - Upper abdominal pain, unspecified Time of Disposition: 14:45 Disposition: Left Against Medical Advice Condition: Good Departure Forms: ED Discharge - Pt. Copy, Patient Portal Self Enrollment Instructions: DI for Abdominal Pain-Adult Diet: resume usual diet Activity: increase activity as tolerated Home Medications: Ambulatory Orders Omeprazole 20 mg PO DAILY #30 cap 08/12/19 Amoxicillin & Pot Clavulanate [Augmentin Tab] 875 mg PO BID 7 Days #14 tab 12/13/19
== END 2020-07-15 15:04 | disposition left against medical advice (07) ==
LOC: ER 13:05
DX: R07.9 Chest pain, unspecified (principal); R10.10 Upper abdominal pain, unspecified; K21.9 Gastro-esophageal reflux disease without esophagitis; Z53.29 Procedure and treatment not carried out because of patient's decision for other reasons; Z87.891 Personal history of nicotine dependence